=== PATIENT | male | born 1935 | race Caucasian/White ===

== ENCOUNTER 2016-05-29 07:49 | Inpatient (IN) | payer MEDICARE, MEDICAID ==
[2016-05-29] VITALS (11 sets, daily range): BP systolic 135–218; BP diastolic 61–100; PULSE 80–124; RESP 18–20; TEMP 96.1–98; O2SAT 91–100
[~2016-05-29] VITALS: Ht 185.4 cm; Wt 54.5 kg
[~2016-05-29 07:49] MED LIST: ACET325T PO; ALBU6.7H INH; AMLO5TAB2 PO; ASPI1TAB69 PO; CARB25TA9 PO; DIVA250T3 PO; DOCU100C PO; NYST15T TOPICAL; TRIA0.5O TOPICAL; VENL75TA PO
[2016-05-29] MEDS ORDERED: SODIUM CHLORIDE 0.9% FLUSH 5 ML FLUSH IVF PRN (08:00)
[2016-05-29] MEDS ORDERED: SODIUM CHLOR 0.9% 1000 ML INJ 1,000 ML IV ONE (08:00)
--- NOTE | 2016-05-29 08:06 | PD ---
HPI Chief Complaint: Syncope/Near-Syncope Time Seen by Provider: 08:00 Travel History International Travel<30 days: No Contact w/Intl Traveler<30days: No Traveled to known affect area: No History of Present Illness HPI The patient is a 80-year-old male who presents emergency Department from assisted living facility because he feels like he is going to pass out. The patient does have a history of dementia and Parkinson's disease. The patient feels like he is going to "pass out ", does complain of mild dizziness, and states his symptoms are present at rest. The patient is currently nonambulatory secondary to severe Parkinson's disease, therefore, is unable to tell me if his symptoms or orthostatic. He denies any headache, chest pain, shortness breath, nausea, vomiting, or abdominal pain. The patient does have a history of asthma and COPD and uses oxygen intermittently. The patient denies any fever. Symptoms are moderate, there are no known alleviating or exacerbating factors. PFSH Past Medical History Anemia: Yes Asthma: Yes COPD: Yes Dementia: Yes Diminished Hearing: Yes Hypertension: Yes Musculoskeletal: Yes (wheelchair ) Neurologic: Yes Parkinson's Disease: Yes Respiratory: Yes Tetanus Vaccination: > 5 Years Influenza Vaccination: Yes Social History Alcohol Use: No Tobacco Use: No Substance Use: No Allergies-Medications (Allergen,Severity, Reaction): Coded Allergies: Penicillin (Verified Allergy, Severe, Rash, 05/29/16) Reported Meds & Prescriptions Reported Meds & Active Scripts Active Reported Temazepam 7.5 Mg Cap 7.5 Mg PO HS PRN Effexor (Venlafaxine HCl) 75 Mg Tab 75 Mg PO DAILY Triamcinolone Topical 0.5 % Oint 1 Applic TOPICAL BID Docusate Sodium 100 Mg Cap 100 Mg PO BID Divalproex ER (Divalproex Sodium) 250 Mg Tenzin 250 Mg PO BID Carbidopa-Levodopa 25-100 Mg Tab 1 Tab PO Q8HR Aspirin 81 Mg Tabdr 81 Mg PO DAILY Amlodipine (Amlodipine Besylate) 5 Mg Tab 5 Mg PO DAILY Proventil Hfa 6.7 GM Inh (Albuterol Sulfate) 90 Mcg/Act Aer 2 Puff INH Q4-6H PRN Nystatin Topical (Nystatin) 100,000 unit/gm Cream 1 Applic TOPICAL BID Acetaminophen 325 Mg Tab 325 Mg PO Q4-6H PRN Review of Systems Except as stated in HPI: all other systems reviewed are Neg General / Constitutional: No: Fever Eyes: Positive: Other (chronic rest of her left thigh but is able to see out of it) HENT: Positive: Lightheadedness, No: Headaches Cardiovascular: No: Chest Pain or Discomfort Respiratory: No: Shortness of Breath Gastrointestinal: No: Nausea, Vomiting, Abdominal Pain Musculoskeletal: No: Weakness Neurologic: Positive: Dizziness, Tremor, Other (history of Parkinson's disease) Physical Exam Narrative GENERAL: Awake, alert, 80-year-old male who appears his stated age and is in no acute respiratory distress. SKIN: Warm and dry. HEAD: Atraumatic. Normocephalic. EYES: The left pupil appears to have a pterygium, pupils are equal and reactive. ENT: No nasal bleeding or discharge. Dry mucous membranes. NECK: Trachea midline. No JVD. CARDIOVASCULAR: Regular, tachycardic with a heart rate of 101. RESPIRATORY: No accessory muscle use. Clear to auscultation. Breath sounds equal bilaterally. GASTROINTESTINAL: Abdomen soft, non-tender, nondistended. MUSCULOSKELETAL: No obvious deformities. No clubbing. No cyanosis. No edema. NEUROLOGICAL: Awake and alert. Resting tremor both arms and right leg. Answers questions without difficulty. Follows commands. PSYCHIATRIC: Appropriate mood and affect; insight and judgment normal. Data Data Last Documented VS Vital Signs Date Time Temp Pulse Resp B/P Pulse Ox O2 Delivery O2 Flow Rate FiO2 05/29/16 08:15 91 Nasal Cannula 2 05/29/16 07:53 97.7 93 173/89 Orders Electrocardiogram (05/29/16 ) Complete Blood Count With Diff (05/29/16 08:00) Comprehensive Metabolic Panel (05/29/16 08:00) Magnesium (Mg) (05/29/16 08:00) Ckmb (Isoenzyme) Profile (05/29/16 08:00) Troponin I (05/29/16 08:00) Urinalysis - C+S If Indicated (05/29/16 08:00) Chest, Single Ap (05/29/16 08:00) Ecg Monitoring (05/29/16 08:00) Iv Access Insert/Monitor (05/29/16 08:00) Oximetry (05/29/16 08:00) Sodium Chloride 0.9% Flush (Ns Flush) (05/29/16 08:00) Sodium Chlor 0.9% 1000 Ml Inj (Ns 1000 M (05/29/16 08:00) Valproic Acid (Depakene) (05/29/16 08:00) Type And Screen (05/29/16 09:23) Red Blood Cells (Rbc) (05/29/16 09:23) Blood Product Administration .UPON TRANSFUSION (05/29/16 09:23) Sodium Chlor 0.9% 250 Ml Inj (Ns 250 Ml (05/29/16 09:30) Diphenhydramine Inj (Benadryl Inj) (05/29/16 09:30) Acetaminophen (Tylenol) (05/29/16 09:30) Potassium Chloride Eff (K-Lyte Cl Eff) (05/29/16 09:30) Labs Laboratory Tests Test 05/29/16 05/29/16 08:33 08:55 White Blood Count 2.2 TH/MM3 Red Blood Count 2.25 MIL/MM3 Hemoglobin 6.1 GM/DL Hematocrit 19.8 % Mean Corpuscular Volume 88.0 FL Mean Corpuscular Hemoglobin 27.1 PG Mean Corpuscular Hemoglobin 30.8 % Concent Red Cell Distribution Width 15.8 % Platelet Count 87 TH/MM3 Mean Platelet Volume 10.8 FL Neutrophils (%) (Auto) 63.3 % Lymphocytes (%) (Auto) 17.0 % Monocytes (%) (Auto) 15.3 % Eosinophils (%) (Auto) 3.8 % Basophils (%) (Auto) 0.6 % Neutrophils # (Auto) 1.4 TH/MM3 Lymphocytes # (Auto) 0.4 TH/MM3 Monocytes # (Auto) 0.3 TH/MM3 Eosinophils # (Auto) 0.1 TH/MM3 Basophils # (Auto) 0.0 TH/MM3 CBC Comment AUTO DIFF Differential Comment AUTO DIFF CONFIRMED Platelet Estimate LOW Platelet Morphology Comment NORMAL Ovalocytes 1+ Sodium Level 146 MEQ/L Potassium Level 2.8 MEQ/L Chloride Level 109 MEQ/L Carbon Dioxide Level 31.2 MEQ/L Anion Gap 6 MEQ/L Blood Urea Nitrogen 12 MG/DL Creatinine 0.41 MG/DL Estimat Glomerular Filtration 202 ML/MIN Rate Random Glucose 73 MG/DL Calcium Level 6.8 MG/DL Protein Corrected Calcium 7.8 MG/DL Magnesium Level 1.7 MG/DL Total Bilirubin 0.2 MG/DL Aspartate Amino Transf 6 U/L (AST/SGOT) Alanine Aminotransferase 8 U/L (ALT/SGPT) Alkaline Phosphatase 69 U/L Total Creatine Kinase 37 U/L Troponin I LESS THAN 0.02 NG/ML Total Protein 5.2 GM/DL Albumin 2.3 GM/DL Valproic Acid (Depakene) Level 29 MCG/ML Urine Color YELLOW Urine Turbidity CLEAR Urine pH 7.0 Urine Specific [place] 1.011 Urine Protein NEG mg/dL Urine Glucose (UA) NEG mg/dL Urine Ketones NEG mg/dL Urine Occult Blood NEG Urine Nitrite NEG Urine Bilirubin NEG Urine Urobilinogen LESS THAN 2.0 MG/DL Urine Leukocyte Esterase NEG Urine RBC 2 /hpf Urine WBC LESS THAN 1 /hpf Urine Mucus FEW /lpf Microscopic Urinalysis Comment CULT NOT INDICATED MDM Medical Decision Making Medical Screen Exam Complete: Yes Emergency Medical Condition: Yes Medical Record Reviewed: Yes Interpretation(s) EKG reveals maybe baseline secondary to Parkinson's tremor. He appears to have P waves. No significant ischemic changes noted. Laboratory Tests Test 05/29/16 05/29/16 08:33 08:55 White Blood Count 2.2 TH/MM3 Red Blood Count 2.25 MIL/MM3 Hemoglobin 6.1 GM/DL Hematocrit 19.8 % Mean Corpuscular Volume 88.0 FL Mean Corpuscular Hemoglobin 27.1 PG Mean Corpuscular Hemoglobin 30.8 % Concent Red Cell Distribution Width 15.8 % Platelet Count 87 TH/MM3 Mean Platelet Volume 10.8 FL Neutrophils (%) (Auto) 63.3 % Lymphocytes (%) (Auto) 17.0 % Monocytes (%) (Auto) 15.3 % Eosinophils (%) (Auto) 3.8 % Basophils (%) (Auto) 0.6 % Neutrophils # (Auto) 1.4 TH/MM3 Lymphocytes # (Auto) 0.4 TH/MM3 Monocytes # (Auto) 0.3 TH/MM3 Eosinophils # (Auto) 0.1 TH/MM3 Basophils # (Auto) 0.0 TH/MM3 CBC Comment AUTO DIFF Differential Comment AUTO DIFF CONFIRMED Platelet Estimate LOW Platelet Morphology Comment NORMAL Ovalocytes 1+ Sodium Level 146 MEQ/L Potassium Level 2.8 MEQ/L Chloride Level 109 MEQ/L Carbon Dioxide Level 31.2 MEQ/L Anion Gap 6 MEQ/L Blood Urea Nitrogen 12 MG/DL Creatinine 0.41 MG/DL Estimat Glomerular Filtration 202 ML/MIN Rate Random Glucose 73 MG/DL Calcium Level 6.8 MG/DL Protein Corrected Calcium 7.8 MG/DL Magnesium Level 1.7 MG/DL Total Bilirubin 0.2 MG/DL Aspartate Amino Transf 6 U/L (AST/SGOT) Alanine Aminotransferase 8 U/L (ALT/SGPT) Alkaline Phosphatase 69 U/L Total Creatine Kinase 37 U/L Troponin I LESS THAN 0.02 NG/ML Total Protein 5.2 GM/DL Albumin 2.3 GM/DL Valproic Acid (Depakene) Level 29 MCG/ML Urine Color YELLOW Urine Turbidity CLEAR Urine pH 7.0 Urine Specific [place] 1.011 Urine Protein NEG mg/dL Urine Glucose (UA) NEG mg/dL Urine Ketones NEG mg/dL Urine Occult Blood NEG Urine Nitrite NEG Urine Bilirubin NEG Urine Urobilinogen LESS THAN 2.0 MG/DL Urine Leukocyte Esterase NEG Urine RBC 2 /hpf Urine WBC LESS THAN 1 /hpf Urine Mucus FEW /lpf Microscopic Urinalysis Comment CULT NOT INDICATED Last Impressions Chest X-Ray 05/29/16 0800 Signed Impressions: Service Date/Time: Tuesday, May 29, 2016 08:03 - CONCLUSION: 1. 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 No new findings compared with January 2016. Noah Wheeler MD Differential Diagnosis Differential diagnosis includes dehydration, electrolyte abnormality, arrhythmia , sepsis, acute coronary syndrome, CVA, intracranial hemorrhage, subarachnoid hemorrhage. Narrative Course IV was established, labs are drawn and sent, and the patient was placed on cardiac telemetry monitoring and continuous pulse oximetry monitoring. EKG was ordered and interpreted. CT the brain was ordered. The patient was administered 1 L of IV fluids and electrolytes were sent to lab. Patient's hemoglobin was noted to be 6.1 with a low hematocrit of 19.8. Rectal exam was performed, no gross blood and was guaiac negative. Patient's last hemoglobin in February 2016 was normal at 13.3. The patient's tachycardia and symptoms of dizziness may be secondary to anemia. Therefore, type and screen was sent to lab and the patient was transfused 2 units of PRBCs. Potassium is low at 2.8, therefore, was replaced orally. I discussed the patient with the on-call medical service who agrees with admission. The patient will be admitted. [facility] Point of Care Internal Pos. & Neg. Controls: Passed Fecal Specimen Occult Blood: Negative Physician Communication Physician Communication I discussed the patient with Dr. Barros who agrees with admission. Diagnosis Primary Impression: Symptomatic anemia Additional Impressions: Hypokalemia Parkinson's disease Admitting Information Admitting Physician Requests: Admit Condition: Stable Murali Cat MD May 29, 2016 08:06
[2016-05-29] MEDS ORDERED: TEMA7.5C PO (08:20)
--- NOTE | 2016-05-29 08:42 | RADRPT ---
EXAM DATE/TIME: 05/29/2016 08:03 [facility] COMPARISON: CHEST PA & LAT, January 19, 2016, 9:31. INDICATIONS : Short of Breath, Palpitations, Dizziness. MEDICAL HISTORY : Dementia. Parkinsons. Chronic obstructive pulmonary disease. Hypertension. SURGICAL HISTORY : None. ENCOUNTER: Initial ACUITY: 1 day PAIN SCORE: 0/10 LOCATION: Bilateral chest FINDINGS: Compare January 2016. Stable right-sided pleural based calcifications and fibrothorax. No new consol idation or effusion. Heart size normal. Mild scoliosis. CONCLUSION: 1. 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 No new findings compared with No [id number]. Noah Wheeler MD on May 29, 2016 at 8:39 Board Certified Radiologist. This report was verified electronically.
[2016-05-29 08:50] LABS: AUTOMATED NEUTROPHIL # 1.4 TH/MM3 (1.8-7.7); BASOPHIL % 0.6 % (0.0-2.0); EOSINOPHIL # 0.1 TH/MM3 (0-0.4); EOSINOPHIL % 3.8 % (0.0-4.0); LYMPHOCYTE # 0.4 TH/MM3 (1.0-4.8); MEAN CORPUSCULAR HEMOGLOBIN 27.1 PG (27.0-34.0); MEAN CORPUSCULAR HGB CONC 30.8 % (32.0-36.0); MONO % 15.3 % (0.0-8.0); NEUT % 63.3 % (16.0-70.0); PLATELET COUNT 87 TH/MM3 (150-450); RED BLOOD COUNT 2.25 MIL/MM3 (4.50-5.90); RED CELL DISTRIBUTION WIDTH 15.8 % (11.6-17.2); WHITE BLOOD COUNT 2.2 TH/MM3 (4.0-11.0)
[2016-05-29 08:55] LABS: HEMO FLAGS AUTO DIFF
[2016-05-29 08:59] LABS: HEMATOCRIT 19.8 % (39.0-51.0)
[2016-05-29 09:13] LABS: BLOOD, URINE NEG (NEG); COMMENT (UR) CULT NOT INDICATED; CULTURE IF INDICATED CULT NOT INDICATED; GLUCOSE,URINE NEG (NEG); KETONE, URINE NEG (NEG); MUCUS URINE FEW /lpf (OCC); NITRITE,URINE NEG (NEG); URINE COLOR YELLOW (YELLW/STRAW)
[2016-05-29 09:17] LABS: ALKALINE PHOSPHATASE 69 U/L (45-117); ALT (GPT) 8 U/L (12-78); ANION GAP 6 MEQ/L (5-15); AST (GOT) 6 U/L (15-37); BICARBONATE 31.2 MEQ/L (21.0-32.0); BLOOD UREA NITROGEN 12 MG/DL (7-18); CALCIUM-PROTEIN CORRECTED 7.8 MG/DL (8.5-10.1); CHLORIDE 109 MEQ/L (98-107); GLOMERULAR FILTRATION RATE 202 ML/MIN (>89); MAGNESIUM 1.7 MG/DL (1.5-2.5); SODIUM (NA) 146 MEQ/L (136-145); TOTAL BILIRUBIN ADULT 0.2 MG/DL (0.2-1.0)
[2016-05-29 09:18] LABS: CREATINE KINASE 37 U/L (39-308)
--- NOTE | 2016-05-29 09:19 | EKG ---
Date Performed: 05/29/2016 Time Performed: 08:00:10 PTAGE: 80 years EKG: Sinus rhythm with frequent premature atrial contractions versus chaotic atrial rhythm. BORDERLINE RIGHT AXIS JOSÉ MIGUEL ATION INCOMPLETE RIGHT BUNDLE BRANCH BLOCK MODERATE ST DEPRESSION ABNORMAL ECG Compared to prior elec trocardiogram, premature atrial contractions are more frequent. PREVIOUS TRACING : 02/24/2016 11.24 DOCTOR: Vel Villareal Interpretating Date/Time 05/29/2016 09:17:46
[2016-05-29 09:20] LABS: POTASSIUM 2.8 MEQ/L (3.5-5.1)
[2016-05-29 09:24] LABS: OVALOCYTES 1+ (NORMAL); PLATELET ESTIMATE SMEAR LOW (NORMAL); PLATELET MORPHOLOGY NORMAL (NORMAL); SCAN/DIFF AUTO DIFF CONFIRMED
[2016-05-29] MEDS ORDERED: diphenhydrAMINE HCL 50 MG/ML VIAL IV PRN (09:30)
[2016-05-29] MEDS ORDERED: ACETAMINOPHEN 325 MG TAB PO PRN ×2 (09:30→10:00)
[2016-05-29] MEDS ORDERED: SODIUM CHLOR 0.9% 250 ML INJ 250 ML IV ONE (09:30)
[2016-05-29] MEDS ORDERED: POTASSIUM CHLORIDE 25 MEQ EFFERVESCENT TAB PO ONE (09:30)
[2016-05-29] MEDS ORDERED: SODIUM CHLOR 0.9% 1000 ML INJ 1,000 ML IV SCH (09:59)
[2016-05-29] MEDS ORDERED: SODIUM CHLORIDE 0.9% FLUSH 5 ML FLUSH FLUSH PRN (10:00)
[2016-05-29] MEDS ORDERED: ALBUTEROL SULFATE 90 MCG/ACT HFA 8 GM INHALER INH PRN (10:00)
[2016-05-29] MEDS ORDERED: BISACODYL 10 MG SUPP PR PRN (10:00)
[2016-05-29] MEDS ORDERED: SENNOSIDES 8.6 MG TAB PO PRN (10:00)
[2016-05-29] MEDS ORDERED: PROCHLORPERAZINE 25 MG SUPP PR PRN (10:00)
[2016-05-29] MEDS ORDERED: POTASSIUM BICARBONATE 25 MEQ EFFERVESCENT TAB PO ONE (10:15)
--- NOTE | 2016-05-29 10:18 | HHI.HP ---
[facility] Non-Staff Admission Diagnosis symptomatic anemia, Parkinson's disease, hypokalemia Diagnoses: Chief Complaint: sob Travel History International Travel<30 Days: No Contact w/Intl Traveler <30 Da: No Traveled to Known Affected Are: No History of Present Illness The patient is a 80-year-old male with PMH of Parkinson disease, HTN, dementia who presented to the emergency Department from assisted living facility because he feels like he is going to pass out and he felt sob. The patient feels like he is going to "pass out ", and he has associated sob. Does complain of mild dizziness, and states his symptoms are present at rest. The patient is currently nonambulatory secondary to severe Parkinson's disease, therefore, is unable to tell me if his symptoms or orthostatic. He denies any headache, chest pain, nausea, vomiting, or abdominal pain. The patient does have a history of asthma and COPD and uses oxygen intermittently. The patient denies any fever. Symptoms are moderate, there are no known alleviating or exacerbating factors. He has tremors, says at baseline, doesn't know the name of his neurology doctor. His BP is noted elevated says he did not take his meds in the morning. Review of Systems Except as stated in HPI: all other systems reviewed are Neg 12 system ROS reviewed and negative except as mentioned in HPI Past Family Social History Past Medical History Asthma since age 19 COPD? Depression HTN Parkinson's disease diagnosed last month Past Surgical History None Reported Medications Reported Meds & Active Scripts Active Reported Temazepam 7.5 Mg Cap 7.5 Mg PO HS PRN Effexor (Venlafaxine HCl) 75 Mg Tab 75 Mg PO DAILY Triamcinolone Topical 0.5 % Oint 1 Applic TOPICAL BID Docusate Sodium 100 Mg Cap 100 Mg PO BID Divalproex ER (Divalproex Sodium) 250 Mg Tenzin 250 Mg PO BID Carbidopa-Levodopa 25-100 Mg Tab 1 Tab PO Q8HR Aspirin 81 Mg Tabdr 81 Mg PO DAILY Amlodipine (Amlodipine Besylate) 5 Mg Tab 5 Mg PO DAILY Proventil Hfa 6.7 GM Inh (Albuterol Sulfate) 90 Mcg/Act Aer 2 Puff INH Q4-6H PRN Nystatin Topical (Nystatin) 100,000 unit/gm Cream 1 Applic TOPICAL BID Acetaminophen 325 Mg Tab 325 Mg PO Q4-6H PRN Allergies: Coded Allergies: Penicillin (Verified Allergy, Severe, Rash, 05/29/16) Family History Mother: stroke, age 60's Dad: healthy Social History Denies EtOH use, used to drink when he was also a smoker, former smoker quit in 1966, no illicit drug use Physical Exam Vital Signs Vital Signs Date Time Temp Pulse Resp B/P Pulse Ox O2 Delivery O2 Flow Rate FiO2 05/29/16 08:15 91 Nasal Cannula 2 05/29/16 07:53 97.7 93 173/89 Physical Exam GENERAL: This is a well-nourished, well-developed patient, in no apparent distress. SKIN: No rashes, ecchymoses or lesions. Cool and dry. HEAD: Atraumatic. Normocephalic. No temporal or scalp tenderness. EYES: Pupils equal round and reactive. Extraocular motions intact. No scleral icterus. No injection or drainage. ENT: Nose without bleeding, purulent drainage or septal hematoma. Throat without erythema, tonsillar hypertrophy or exudate. Uvula midline. Airway patent. NECK: Trachea midline. No JVD or lymphadenopathy. Supple, nontender, no meningeal signs. CARDIOVASCULAR: Regular rate and rhythm without murmurs, gallops, or rubs. RESPIRATORY: Clear to auscultation. Breath sounds equal bilaterally. No wheezes , rales, or rhonchi. GASTROINTESTINAL: Abdomen soft, non-tender, nondistended. No hepato-splenomegaly , or palpable masses. No guarding. MUSCULOSKELETAL: Extremities without clubbing, cyanosis, or edema. No joint tenderness, effusion, or edema noted. No calf tenderness. Negative Homans sign bilaterally. NEUROLOGICAL: Awake and alert. Cranial nerves II through XII intact. Motor and sensory grossly within normal limits. Five out of 5 muscle strength in all muscle groups. Normal speech. Laboratory Laboratory Tests Test 05/29/16 05/29/16 08:33 08:55 White Blood Count 2.2 Red Blood Count 2.25 Hemoglobin 6.1 Hematocrit 19.8 Mean Corpuscular Volume 88.0 Mean Corpuscular Hemoglobin 27.1 Mean Corpuscular Hemoglobin 30.8 Concent Red Cell Distribution Width 15.8 Platelet Count 87 Mean Platelet Volume 10.8 Neutrophils (%) (Auto) 63.3 Lymphocytes (%) (Auto) 17.0 Monocytes (%) (Auto) 15.3 Eosinophils (%) (Auto) 3.8 Basophils (%) (Auto) 0.6 Neutrophils # (Auto) 1.4 Lymphocytes # (Auto) 0.4 Monocytes # (Auto) 0.3 Eosinophils # (Auto) 0.1 Basophils # (Auto) 0.0 CBC Comment AUTO DIFF Differential Comment AUTO DIFF CONFIRMED Platelet Estimate LOW Platelet Morphology Comment NORMAL Ovalocytes 1+ Sodium Level 146 Potassium Level 2.8 Chloride Level 109 Carbon Dioxide Level 31.2 Anion Gap 6 Blood Urea Nitrogen 12 Creatinine 0.41 Estimat Glomerular Filtration 202 Rate Random Glucose 73 Calcium Level 6.8 Protein Corrected Calcium 7.8 Magnesium Level 1.7 Total Bilirubin 0.2 Aspartate Amino Transf 6 (AST/SGOT) Alanine Aminotransferase 8 (ALT/SGPT) Alkaline Phosphatase 69 Total Creatine Kinase 37 Troponin I LESS THAN 0.02 Total Protein 5.2 Albumin 2.3 Valproic Acid (Depakene) Level 29 Urine Color YELLOW Urine Turbidity CLEAR Urine pH 7.0 Urine Specific [place] 1.011 Urine Protein NEG Urine Glucose (UA) NEG Urine Ketones NEG Urine Occult Blood NEG Urine Nitrite NEG Urine Bilirubin NEG Urine Urobilinogen LESS THAN 2.0 Urine Leukocyte Esterase NEG Urine RBC 2 Urine WBC LESS THAN 1 Urine Mucus FEW Microscopic Urinalysis Comment CULT NOT INDICATED Result Diagram: 05/29/16 0833 05/29/16 0833 Imaging Last Impressions Chest X-Ray 05/29/16 0800 Signed Impressions: Service Date/Time: Sunday, May 29, 2016 08:03 - CONCLUSION: 1. 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 No new findings compared with January 2016. Noah Wheeler MD Assessment and Plan Assessment and Plan Pancytopenia Anemia unclear etiology symptomatic, with HGB 6.1 on admission FOBT in the ER is negative Type and screen transfuse 2U PRBC. Monitor H/H Monitor CBC Consult hem/onc Check Parkinson's disease Chronic, continue home meds, carbidopa/levadopa HTN: Resume amlodipine, BP elevated on admission. Monitor VS and adjust meds as indicated Right sided fibrothorax, stable. CXR reviewed 1. 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 No new findings compared with January 2016. DVT ppx CI as patient with pancytopenia Discussed Condition With patient, nurse, ED specialist Physician Certification 2 Midnight Certification Type: Admission for Inpatient Services Order for Inpatient Services The services are ordered in accordance with Medicare regulations or non- Medicare payer requirements, as applicable. In the case of services not specified as inpatient-only, they are appropriately provided as inpatient services in accordance with the 2-midnight benchmark. Estimated LOS (days): 3 days is the estimated time the patient will need to remain in the hospital, assuming treatment plan goals are met and no additional complications. Post-Hospital Plan: Not yet determined Evonne Morin MD May 29, 2016 10:18
[2016-05-29] MEDS: SODIUM CHLOR 0.45% 1000 ML INJ 1,000 ML IV SCH (11:21)
[2016-05-29 11:31] LABS: FERRITIN 16 NG/ML (26-388); TRANSFERRIN IRON PROFILE 194 MG/DL (200-360)
[2016-05-29] MEDS ORDERED: CALCIUM GLUCONATE INJ 1 GM in SODIUM CHLORIDE 0.9% INJ 100 ML IV ONE (12:00)
[2016-05-29] MEDS: CARBIDOPA/LEVODOPA 25 MG/100 MG TAB PO SCH ×2 (12:37→22:34)
[2016-05-29] MEDS ORDERED: ENALAPRILAT 2.5 MG/2 ML VIAL IV PUSH PRN (13:45)
[2016-05-29] MEDS ORDERED: amLODIPine BESYLATE 5 MG TAB PO ONE (13:45)
[2016-05-29] MEDS ORDERED: cloNIDine HCL 0.1 MG TAB PO PRN (13:45)
--- NOTE | 2016-05-29 20:17 | MB ---
cc: JAVIER LANDIN M.D. DATE OF CONSULTATION 05/29/16 REASON FOR CONSULTATION Consult requested by Dr. Morin for evaluation of severe anemia. HISTORY OF PRESENT ILLNESS This is a 80-year-old male who resides at the adult living facility. The patient was complaining that he is going to pass out. He was also short of breath. He was sent to the emergency room for further evaluation. In the emergency room this morning the CBC showed white count 2.2, hemoglobin 6.1, hematocrit 19.8, platelet count is 87. This is compared to the previous CBC from February 24, 2016 when it was completely normal. This is an acute change. His stools were checked in the emergency room which were heme-negative. The patient is getting blood transfusion. His iron studies came back showed that the serum ferritin is 16, iron saturation is low at 15.8, serum iron is low at 43 and TIBC is normal at 272. This is consistent with iron deficiency anemia. The B12 is normal at 515. The serum folate is normal at 9.0. I have been asked to see the patient for further evaluation. The patient denies any previous history of anemia. He is a very poor historian. He has severe tremors from Parkinson's disease. The patient's performance status is poor due to the severe Parkinson's disease. He is not able to walk that much. He denies any fever. He denies any nausea, vomiting, diarrhea or constipation. The rest of the review of systems is negative. PAST MEDICAL HISTORY Dementia, COPD, depression, hypertension, Parkinson's disease. PAST SURGICAL HISTORY None. ALLERGIES PENICILLIN. MEDICATIONS 1. Temazepam. 2. Effexor. 3. Colace. 4. Divalproex. 5. Carbidopa/Levadopa. 6. Aspirin. 7. Amlodipine. 8. Proventil. 9. Nystatin. FAMILY HISTORY Noncontributory. SOCIAL HISTORY The patient used to smoke cigarettes, quit in 1995. He does not drink alcohol anymore. He resides in the adult living facility. PHYSICAL EXAMINATION GENERAL: This is an elderly white male in no apparent distress. He has obvious tremors. VITAL SIGNS: Temperature 97.7, heart rate is 95, blood pressure 165/80. HEENT: PERRLA, EOMI, pterygium noted in the in the left eye. No oral lesions. NECK: No lymphadenopathy. LUNGS: Decreased breath sounds on both sides. HEART: Heart is regular rate and rhythm. ABDOMEN: Abdomen is soft, nontender. No hepatosplenomegaly. EXTREMITIES: No pedal edema. NEUROLOGIC: The patient is awake, alert with severe tremors. SKIN: No significant lesions noted. ASSESSMENT 1. Acute severe pancytopenia. The differential diagnosis is myelodysplastic syndrome versus acute leukemia versus bone marrow suppression from the medications such as Divalproex and/or Carbidopa/Levadopa. 2. Severe iron deficiency anemia. His stools were checked in the emergency room by ER physician and was reported to be negative. However, we will get the stool for occult blood to make sure that he does not have any GI bleeding as a cause of the iron deficiency. He will need GI consult to make sure that we are not dealing with any GI malignancy as a cause of the iron deficiency. PLAN I have reviewed his available records and have discussed with the patient regrading causes of pancytopenia and iron deficiency anemia. Interestingly, the patient had a CBC on February 24, 2016 when he came to the emergency room was completely normal. Now his CBC shows that the white count has dropped to 2.2, hemoglobin 6.1, hematocrit is 19.8, platelet count is 87. Either he could have myelodysplastic syndrome or acute leukemia. Or this could be due to the medications Divalproex and /or Carbidopa/Levadopa. No evidence of nutritional deficiency as both B12 and folate are normal. My recommendations are: 1) consult interventional radiology for bone marrow aspirate and biopsy on Tuesday to evaluate for either myelodysplastic syndrome or acute leukemia. 2) Adjust medications Divalproex and/or Carbidopa/Levadopa. Both can cause pancytopenia and blood dyscrasia. I will leave it upto the [facility] physcian to do the adjustment as it is out of scope of my practice. 3) Monitor cbc and support with blood transfusion if HG <8 4) Venofer iron infusion for iron deficiency anemia. Check stool for occult blood. Consult GI to evaluate the cause of Iron deficiency. The patient is receiving blood transfusion at the moment. Further recommendations based on his hospital stay. Thank you for asking my opinion. MD RALPH Reinoso/MARIETTA /7:25 PM /7:52 PM MTDCarolin
[2016-05-29] MEDS: SODIUM CHLORIDE 0.9% FLUSH 5 ML FLUSH FLUSH SCH (22:34)
[2016-05-29] MEDS: DIVALPROEX SODIUM E.R. 250 MG TAB PO SCH (22:34)
[2016-05-29] MEDS: DOCUSATE SODIUM 100 MG CAP PO SCH (22:34)
[2016-05-29] MEDS: CALCIUM CARBONATE 500 MG CHEWABLE TAB CHEW SCH (22:34)
[2016-05-29] MEDS: NYSTATIN 100,000 UNIT/GM CREAM 15 GM TOPICAL SCH (22:35)
[2016-05-29] MEDS: BETAMETHASONE DIPROPIONATE 0.05% OINT 15 GM TUBE TOP SCH (22:35)
[2016-05-29] MEDS: TEMAZEPAM 7.5 MG CAP PO PRN (22:38)
[2016-05-30 00:26] VITALS: PULSE 94; RESP 20; TEMP 97.4; O2SAT 98
[2016-05-30 04:00] VITALS: BP 168/74; PULSE 92; RESP 20; TEMP 97.8; O2SAT 98
[2016-05-30] MEDS: CARBIDOPA/LEVODOPA 25 MG/100 MG TAB PO SCH ×2 (05:47→12:28)
[2016-05-30] MEDS: SODIUM CHLOR 0.45% 1000 ML INJ 1,000 ML IV SCH ×3 (05:48→21:10)
[2016-05-30 07:40] VITALS: BP 175/93; PULSE 91; RESP 20; TEMP 96.6; O2SAT 100
[2016-05-30] MEDS: NYSTATIN 100,000 UNIT/GM CREAM 15 GM TOPICAL SCH ×2 (08:24→21:10)
[2016-05-30] MEDS: BETAMETHASONE DIPROPIONATE 0.05% OINT 15 GM TUBE TOP SCH ×2 (08:24→21:10)
[2016-05-30] MEDS: DOCUSATE SODIUM 100 MG CAP PO SCH ×2 (08:26→21:09)
[2016-05-30] MEDS: DIVALPROEX SODIUM E.R. 250 MG TAB PO SCH (08:27)
[2016-05-30] MEDS: amLODIPine BESYLATE 5 MG TAB PO SCH (08:27)
[2016-05-30] MEDS: CALCIUM CARBONATE 500 MG CHEWABLE TAB CHEW SCH ×2 (08:27→21:09)
[2016-05-30] MEDS: VENLAFAXINE HCL XR 75 MG CAP PO SCH (08:27)
[2016-05-30] MEDS: SODIUM CHLORIDE 0.9% FLUSH 5 ML FLUSH FLUSH SCH ×2 (08:27→21:09)
[2016-05-30 09:27] LABS: AUTOMATED NEUTROPHIL # 3.1 TH/MM3 (1.8-7.7); BASOPHIL % 0.6 % (0.0-2.0); EOSINOPHIL # 0.1 TH/MM3 (0-0.4); EOSINOPHIL % 1.7 % (0.0-4.0); HEMATOCRIT 42.8 % (39.0-51.0); HEMO FLAGS DIFF FINAL; LYMPH % 12.3 % (9.0-44.0); LYMPHOCYTE # 0.6 TH/MM3 (1.0-4.8); MEAN CELL VOLUME 84.6 FL (80.0-100.0); MEAN CORPUSCULAR HEMOGLOBIN 27.2 PG (27.0-34.0); MEAN CORPUSCULAR HGB CONC 32.2 % (32.0-36.0); MONO % 16.3 % (0.0-8.0); NEUT % 69.1 % (16.0-70.0); PLATELET COUNT 145 TH/MM3 (150-450); RED BLOOD COUNT 5.06 MIL/MM3 (4.50-5.90); RED CELL DISTRIBUTION WIDTH 15.8 % (11.6-17.2); WHITE BLOOD COUNT 4.5 TH/MM3 (4.0-11.0)
--- NOTE | 2016-05-30 09:51 | PD.ONC.PN ---
Subjective Subjective Remarks Afebrile overnight. No reported overnight events. No report of bleeding. tolerated blood transfusion. Patient resting in room in nad. Objective Data Date Time Temp Pulse Resp B/P Pulse Ox O2 Delivery O2 Flow Rate FiO2 05/30/16 07:40 96.6 91 20 175/93 100 05/30/16 04:00 97.8 92 20 168/74 98 05/30/16 00:26 97.4 94 20 98 05/29/16 23:05 170/78 05/29/16 18:13 97.7 95 20 165/80 95 05/29/16 16:00 96.1 111 18 177/77 97 05/29/16 15:09 97.1 92 18 163/82 05/29/16 14:41 97.4 86 20 135/61 100 05/29/16 14:06 93 18 136/66 100 05/29/16 13:45 97.8 80 18 149/71 99 05/29/16 12:57 195/98 05/29/16 12:20 98.0 124 18 218/100 99 Result Diagram: 05/30/16 0854 05/29/16 0833 Laboratory Results Laboratory Tests Test 05/29/16 05/29/16 05/30/16 09:56 11:10 08:54 Blood Type A POSITIVE A POSITIVE Antibody Screen NEGATIVE Crossmatch Leukocyte-Reduced Red Blood Cells Blood Bank Comment White Blood Count 4.5 TH/MM3 Red Blood Count 5.06 MIL/MM3 Hemoglobin 13.8 GM/DL Hematocrit 42.8 % Mean Corpuscular Volume 84.6 FL Mean Corpuscular Hemoglobin 27.2 PG Mean Corpuscular Hemoglobin 32.2 % Concent Red Cell Distribution Width 15.8 % Platelet Count 145 TH/MM3 Mean Platelet Volume 10.8 FL Neutrophils (%) (Auto) 69.1 % Lymphocytes (%) (Auto) 12.3 % Monocytes (%) (Auto) 16.3 % Eosinophils (%) (Auto) 1.7 % Basophils (%) (Auto) 0.6 % Neutrophils # (Auto) 3.1 TH/MM3 Lymphocytes # (Auto) 0.6 TH/MM3 Monocytes # (Auto) 0.7 TH/MM3 Eosinophils # (Auto) 0.1 TH/MM3 Basophils # (Auto) 0.0 TH/MM3 CBC Comment DIFF FINAL Differential Comment Administered Medications Medications (Trade) Dose Ordered Sig/Yelitza Route PRN Reason Start Time Stop Time Status Last Admin Dose Admin IV Flush (NS Flush) 2 ml BID FLUSH 05/29/16 21:00 05/30/16 08:27 Albuterol Sulfate (Proair Hfa Inh) 2 puff Q6HR PRN INH SHORTNESS OF BREATH 05/29/16 10:00 05/29/16 10:59 Amlodipine Besylate (Norvasc) 5 mg DAILY PO 05/30/16 09:00 05/30/16 08:27 Carbidopa/Levodopa (Sinemet 25-100 Mg) 1 tab Q8HR PO 05/29/16 14:00 05/30/16 05:47 Divalproex Sodium (Depakote Er) 250 mg BID PO 05/29/16 21:00 05/30/16 08:27 Docusate Sodium (Colace) 100 mg BID PO 05/29/16 21:00 05/30/16 08:26 Nystatin (Mycostatin Cream) 1 applic BID TOPICAL 05/29/16 21:00 05/30/16 08:24 Temazepam (Restoril) 7.5 mg HS PRN PO INSOMNIA 05/29/16 10:00 05/29/16 22:38 Betamethasone Dipropionate (Diprosone 0.05% Ointment) 1 applic BID TOP 05/29/16 21:00 05/30/16 08:24 Venlafaxine HCl (Effexor Xr) 75 mg DAILY PO 05/30/16 09:00 05/30/16 08:27 Calcium Carbonate 500 mg 500 mg Q12HR CHEW 05/29/16 21:00 05/30/16 08:27 Sodium Chloride (1/2 NS 1000 ml Inj) 1,000 ml @ 84 mls/hr [id number] IV 05/29/16 10:15 05/30/16 08:27 Objective Remarks GENERAL: Elderly male, sitting up on side of bed with severe bilateral tremor. SKIN: Warm and dry. HEAD: Normocephalic. EYES: No injection or drainage. NECK: Supple, trachea midline. CARDIOVASCULAR: Regular rate and rhythm RESPIRATORY: Breath sounds equal bilaterally. No accessory muscle use. GASTROINTESTINAL: Abdomen soft, non-tender, nondistended. EXTREMITIES: No cyanosis MUSCULOSKELETAL: Adequate muscle tone. NEUROLOGICAL: awake and alert. severe tremor. Assessment/Plan Problem List: (1) Pancytopenia Status: Acute Plan: 05/30/16: counts improved today. will monitor and give IV venofer today. --differential diagnosis is myelodysplastic syndrome versus acute leukemia versus bone marrow suppression from the medications such as Divalproex and/or Carbidopa/Levadopa. --will need bone marrow aspirate and biopsy on Tuesday to evaluate for either myelodysplastic syndrome or acute leukemia. (2) Iron deficiency anemia Status: Acute Plan: 05/30: give IV Venofer 100mg IV x 3 days. await GI consult --stools check in ED were Hemoccult negative --awaiting GI consult to r/o malignancy Assessment 80y/o with pancytopenia and iron deficiency anemia. h/o Dementia, COPD, depression, hypertension, Parkinson's disease. Attending Statement no new c/o feels better cbc shows hg improved to 13. Repeat h/h also confirm hg 13. So i suspect that blood from yesterday was an error. I will repeat iron studies to confirm. GI input appreciated. NO need for bm bx as his blood counts are normal except plat is mildly low. d/w Dr diaz. will follow. The exam, history, and the medical decision-making described in the above note were completed with the assistance of the mid-level provider. I reviewed and agree with the findings presented. I attest that I had a [id number] encounter with the patient on the same day, and personally performed and documented my assessment and findings in the medical record. Problem Qualifiers (1) Iron deficiency anemia: Qualified Code: D50.9 - Iron deficiency anemia, unspecified iron deficiency anemia type Sarah Montgomery May 30, 2016 09:51 Ashwin Dorantes MD May 30, 2016 18:46
[2016-05-30] MEDS: IRON SUCROSE INJ 100 MG in SODIUM CHLORIDE 0.9% INJ 100 ML IV SCH (10:33)
[2016-05-30 10:35] LABS: BICARBONATE 34.7 MEQ/L (21.0-32.0); POTASSIUM 3.8 MEQ/L (3.5-5.1)
--- NOTE | 2016-05-30 10:37 | HHI.PR ---
Subjective Remarks In the chair, with tremors, says tremors are at baseline. Less sob. Feels tired. No n/v/d/c. No charanijt bleeding. No signs of bleeding. Denies having any pain. Objective Vitals Vital Signs Date Time Temp Pulse Resp B/P Pulse Ox O2 Delivery O2 Flow Rate FiO2 05/30/16 07:40 96.6 91 20 175/93 100 05/30/16 04:00 97.8 92 20 168/74 98 05/30/16 00:26 97.4 94 20 98 05/29/16 23:05 170/78 05/29/16 18:13 97.7 95 20 165/80 95 05/29/16 16:00 96.1 111 18 177/77 97 05/29/16 15:09 97.1 92 18 163/82 05/29/16 14:41 97.4 86 20 135/61 100 05/29/16 14:06 93 18 136/66 100 05/29/16 13:45 97.8 80 18 149/71 99 05/29/16 12:57 195/98 05/29/16 12:20 98.0 124 18 218/100 99 I/O 05/29/16 05/29/16 05/29/16 05/30/16 05/30/16 05/30/16 07:00 15:00 23:00 07:00 15:00 23:00 Intake Total 120 ml 240 ml 240 ml Output Total 350 ml 400 ml Balance 120 ml -110 ml -160 ml Intake Oral 120 ml 240 ml 240 ml Output Urine Total 350 ml 400 ml # Voids 2 2 # Bowel Movements 2 Result Diagram: 05/30/16 0854 05/29/16 0833 Imaging Last Impressions Chest X-Ray 05/29/16 0800 Signed Impressions: Service Date/Time: Sunday, May 29, 2016 08:03 - CONCLUSION: 1. 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 No new findings compared with January 2016. Noah Wheeler MD Objective Remarks GENERAL: This is a well-nourished, well-developed patient, in no apparent distress. SKIN: No rashes, ecchymoses or lesions. Cool and dry. HEAD: Atraumatic. Normocephalic. No temporal or scalp tenderness. EYES: Pupils equal round and reactive. Extraocular motions intact. No scleral icterus. No injection or drainage. ENT: Nose without bleeding, purulent drainage or septal hematoma. Throat without erythema, tonsillar hypertrophy or exudate. Uvula midline. Airway patent. NECK: Trachea midline. No JVD or lymphadenopathy. Supple, nontender, no meningeal signs. CARDIOVASCULAR: Regular rate and rhythm without murmurs, gallops, or rubs. RESPIRATORY: Clear to auscultation. Breath sounds equal bilaterally. No wheezes , rales, or rhonchi. GASTROINTESTINAL: Abdomen soft, non-tender, nondistended. No hepato-splenomegaly , or palpable masses. No guarding. MUSCULOSKELETAL: Extremities without clubbing, cyanosis, or edema. No joint tenderness, effusion, or edema noted. No calf tenderness. Negative Homans sign bilaterally. NEUROLOGICAL: Awake and alert. Cranial nerves II through XII intact. Motor and sensory grossly within normal limits. Five out of 5 muscle strength in all muscle groups. Normal speech. A/P Assessment and Plan Pancytopenia Anemia unclear etiology symptomatic, with HGB 6.1 on admission Consult IR for BM BX to r/o MDS. FOBT in the ER is negative. Type and screen transfuse 2U PRBC. Repeat HGB ay 13. Monitor H/H and transfuse as need. Monitor CBC Consult hem/onc , recommends GI consult, changing star meds and also IR for BMBX to r/o MDS. Consult GI to r/o GIB Parkinson's disease Chronic, continue home meds, carbidopa/levadopa. Consult neurology for revision of meds and po ss change meds as might cause anemia HTN: Resume amlodipine, BP elevated on admission. Monitor VS and adjust meds as indicated Right sided fibrothorax, stable. CXR reviewed 1. 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 No new findings compared with January 2016. DVT ppx CI as patient with pancytopenia Discussed Condition With patient, nurse Discharge Planning pending improvement further work up and clearance by consultants. Evonne Morin MD May 30, 2016 10:37
[2016-05-30] MEDS ORDERED: MAGNESIUM OXIDE 400 MG TAB PO ONE (10:45)
[2016-05-30 11:30] VITALS: BP 156/67; PULSE 85; RESP 20; TEMP 97.3; O2SAT 96
--- NOTE | 2016-05-30 14:01 | MB ---
cc: MATEO GRAY MD DATE OF CONSULTATION: 05/30/2016 REASON FOR CONSULTATION: Parkinson's with anemia. Evaluation for change in medications. HISTORY OF PRESENT ILLNESS: The patient is a poor historian with a baseline dementia who resides in a [facility]. He has been diagnosed with Parkinson's disease lately according to the review of the medical records as the patient is a poor historian. He presented from the facility because he felt like he was going to pass out and felt short of breath. The patient states that he is non-ambulatory for the last four years. Denies headache, double vision, blurred vision, speech or swallowing difficulty; however, during the encounter, the patient seemed to have slurred speech and hypophonic with possible element of dysphagia as there was a lot of spilt food on his abraham and hospital gown. The patient found to be anemic during this hospital stay as compared to a recent hospital stay with a drop in hemoglobin down to 6.1, hematocrit 19.8, white blood cells of 2.2 and a platelet count of 87,000/pancytopenia; hence, they consulted neurology for modification of medication as he is currently on carbidopa-levodopa 25 mg /100 mg q. 8 hourly and for unclear reasons on Divalproex Extended-Release 250 milligrams twice daily. REVIEW OF SYSTEMS: A twelve-point review of systems was negative except as stated in the history of present illness. PAST MEDICAL HISTORY: 1. Dementia. 2. Anemia. 3. Asthma. 4. COPD. 5. Hypertension. 6. Parkinson's disease. PAST SURGICAL HISTORY: None. ALLERGIES: PENICILLIN. FAMILY HISTORY: Mother with a stroke. SOCIAL HISTORY: Ex-smoker and ex-alcohol consumer. No illicit drug abuse. PHYSICAL EXAMINATION: GENERAL: The patient is a frail, disheveled male with notable head, body and extremity shaking. Poor historian. HEAD, EYES, EARS, NOSE, THROAT: Normocephalic and atraumatic. Intact hearing. Intact vision. Notable head shake. NECK: No carotid bruits. No signs of meningeal irritation. CARDIOVASCULAR: Regular rate and rhythm. RESPIRATORY: Clear to auscultation. No wheezes. MUSCULOSKELETAL: Extremities without clubbing, cyanosis; however, there is abnormal movement of all four extremities. NEUROLOGICAL EXAMINATION: Awake, alert and oriented to time, person and place. Hypophonic. Slurred speech / questionable chronic. CRANIAL NERVES EXAMINATION: Positive primitive release reflexes, positive Myerson's sign. Pupils are 3 mm bilateral equal. Intact ocular motility. Slurred speech. Hypophonic speech / likely chronic. No obvious facial asymmetry. MOTOR EXAMINATION: Generalized weakness. Unable to accurately assess and grade the muscle strength due to the prominent abnormal movement in the extremities; however, he is able to move all his extremities with notable weakness in bilateral lower extremities with hypertonia of rigid type and cogwheel rigidity in bilateral upper extremities with notable coarse tremor in the four extremities, upper extremities greater than lower extremities. REFLEXES: 1+ bilateral symmetrical. Plantars are bilateral downgoing. SENSORY AND CEREBELLAR: Sensation and cerebellar functions were not accurately assessed due to the condition of the patient. LAB TESTS: WBCs 2.2, hemoglobin 6.1, hematocrit 19.8, platelet count 87,000. Sodium 146, potassium 2.8, chloride 109, anion gap 6, BUN 12, creatinine 0.41, calcium level 6.8, magnesium 1.7. AST 6, ALT 8, alkaline phosphatase 69. Assessment and Plan: - Extrapyramidal disorder / Parkinsonism. - Given the bilateral involvement of the extrapyramidal features and the fast progression of symptoms with cognitive decline and possible autonomic symptoms as the patient was admitted previously to a hospital with hypotension and with the sphincter control disturbances that has been ongoing for a long time and inability to walk and unsteadiness, the patient is unlikely a definite diagnosis of Parkinson's disease. 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 - Given the possible side effect of carbidopa-levodopa on the hemopoietic system , I do not see a contraindication not to discontinue carbidopa-levodopa at this time and substitute it with a dopamine agonist like Pramipexole or Ropinirole; however, the pharmacological affect could still be unsatisfactory. - Patient is on Divalproex Extended-Release for unclear the reasons. There is no mention of a history of seizures; however, could have been prescribed because of depression or as a mood stabilizer. We still can discontinue the medication gradually over two days. - Physical therapy / occupational therapy recommendations are appreciated. -Fall precautions. Thank you for the opportunity to participate in the care of your patient. MD LELE Charles/HILARIO /1:01 PM /1:40 PM SAMIA
--- NOTE | 2016-05-30 14:03 | PD.CONS ---
HPI History of Present Illness Mr. Salvador is a 80 y/o WM with Parkinson disease, HTN, and dementia who presented to the ED at [facility] on 05/29/16 from a local assisted living facility, [facility], because he felt like he is going to pass out and felt SOB. Labs at admission revealed a significant anemia with Hgb 6.1/Hct 19.8. Pt was given 2 units of PRBCs and repeat labs today with noted Hgb 13.8/Hct 42.8 which is unlikely to be correct as pt only received 2 units of blood. Pts nurse states that he has not seen any obvious bleeding. Pt was noted to be guaiac negative in the ED. He is notably iron deficient. Pt was seen by Hematology/oncology and there is concern for possible myelodysplastic syndrome vs. acute leukemia vs. bone marrow suppression from the medications such as Divalproex and/or Carbidopa /Levadopa and pt is planned for BM biopsy but GI consult was requested to rule out any malignancy as a cause for his anemia. Its unclear if the pt has been losing any weight. He is reportedly not eating much. Pt seems to have some baseline dementia and lives at a local [facility]. He is alert and oriented to self, he knows he is in a hospital in [place] and is able to tell me its 2017 but he states that his lives in [place] with his 7 children who range in age from 18 years old to 3 months old. Pt states that he has not previously been evaluated with an EGD or colonoscopy. He denies any chest pain, nausea, vomiting, diarrhea or abdominal pain. The patient does have a history of asthma and COPD and uses oxygen intermittently. He has tremors at baseline. (Mary Felipe) PFSH Past Medical History According to his records from his [facility] paperwork, pts PMH includes: Asthma COPD PAD Depression HTN Parkinson's disease Past Surgical History None reported (Mary Felipe) Coded Allergies: Penicillin (Verified Allergy, Severe, Rash, 05/29/16) Medications Temazepam 7.5 Mg Cap 7.5 Mg PO HS PRN Effexor (Venlafaxine HCl) 75 Mg Tab 75 Mg PO DAILY Triamcinolone Topical 0.5 % Oint 1 Applic TOPICAL BID Docusate Sodium 100 Mg Cap 100 Mg PO BID Divalproex ER (Divalproex Sodium) 250 Mg Tenzin 250 Mg PO BID Carbidopa-Levodopa 25-100 Mg Tab 1 Tab PO Q8HR Aspirin 81 Mg Tabdr 81 Mg PO DAILY Amlodipine (Amlodipine Besylate) 5 Mg Tab 5 Mg PO DAILY Proventil Hfa 6.7 GM Inh (Albuterol Sulfate) 90 Mcg/Act Aer 2 Puff INH Q4-6H PRN Nystatin Topical (Nystatin) 100,000 unit/gm Cream 1 Applic TOPICAL BID Acetaminophen 325 Mg Tab 325 Mg PO Q4-6H PRN Family History Mother: stroke, age 60's Dad: healthy Social History Denies EtOH use Pt has hx of tobacco use, quit in 1966, no illicit drug use Pt lives at a local [facility] (Mary Felipe) GI Exam Vitals I&O Vital Signs Date Time Temp Pulse Resp B/P Pulse Ox O2 Delivery O2 Flow Rate FiO2 05/30/16 11:30 97.3 85 20 156/67 96 05/30/16 07:40 96.6 91 20 175/93 100 05/30/16 04:00 97.8 92 20 168/74 98 05/30/16 00:26 97.4 94 20 98 05/29/16 23:05 170/78 05/29/16 18:13 97.7 95 20 165/80 95 05/29/16 16:00 96.1 111 18 177/77 97 05/29/16 15:09 97.1 92 18 163/82 05/29/16 14:41 97.4 86 20 135/61 100 05/29/16 14:06 93 18 136/66 100 05/29/16 13:45 97.8 80 18 149/71 99 I/O 05/29/16 05/29/16 05/29/16 05/30/16 05/30/16 05/30/16 07:00 15:00 23:00 07:00 15:00 23:00 Intake Total 120 ml 240 ml 240 ml Output Total 350 ml 400 ml 250 ml Balance 120 ml -110 ml -160 ml -250 ml Intake Oral 120 ml 240 ml 240 ml Output Urine Total 350 ml 400 ml 250 ml # Voids 2 2 # Bowel Movements 2 Imaging Last Impressions Chest X-Ray 05/29/16 0800 Signed Impressions: Service Date/Time: Sunday, May 29, 2016 08:03 - CONCLUSION: 1. 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 No new findings compared with January 2016. Noah Wheeler MD Laboratory Test 05/30/16 08:54 White Blood Count 4.5 TH/MM3 Red Blood Count 5.06 MIL/MM3 Hemoglobin 13.8 GM/DL Hematocrit 42.8 % Mean Corpuscular Volume 84.6 FL Mean Corpuscular Hemoglobin 27.2 PG Mean Corpuscular Hemoglobin 32.2 % Concent Red Cell Distribution Width 15.8 % Platelet Count 145 TH/MM3 Mean Platelet Volume 10.8 FL Neutrophils (%) (Auto) 69.1 % Lymphocytes (%) (Auto) 12.3 % Monocytes (%) (Auto) 16.3 % Eosinophils (%) (Auto) 1.7 % Basophils (%) (Auto) 0.6 % Neutrophils # (Auto) 3.1 TH/MM3 Lymphocytes # (Auto) 0.6 TH/MM3 Monocytes # (Auto) 0.7 TH/MM3 Eosinophils # (Auto) 0.1 TH/MM3 Basophils # (Auto) 0.0 TH/MM3 CBC Comment DIFF FINAL Differential Comment Sodium Level 140 MEQ/L Potassium Level 3.8 MEQ/L Chloride Level 95 MEQ/L Carbon Dioxide Level 34.7 MEQ/L Anion Gap 10 MEQ/L Blood Urea Nitrogen 10 MG/DL Creatinine 0.54 MG/DL Estimat Glomerular Filtration 147 ML/MIN Rate Random Glucose 96 MG/DL Calcium Level 9.1 MG/DL Physical Examination HEENT: Pupils round and reactive to light; normocephalic; atraumatic; no jaundice. Throat is clear. NECK: Neck is supple, no JVD, no lymphadenopathy. CHEST: CTA, poor inspiratory effort CARDIAC: Regular ABDOMEN: +BS, soft, nondistended, nontender EXTREMITIES: No clubbing, cyanosis, or edema. SKIN: Normal; no rash; no jaundice. CORE CARRIER: No focal deficits; alert and oriented to self, place (hospital in [place]) , and time (2016) (Mary Felipe) Assessment and Plan Plan ASSESSMENT: - Severe anemia. Pt admitted for dizziness and SOB on 05/29/16 from a local assisted living facility, [facility]. Labs at admission revealed a significant anemia with Hgb 6.1/Hct 19.8. Pt was given 2 units of PRBCs and repeat labs today with noted Hgb 13.8/Hct 42.8 which is unlikely to be correct as pt only received 2 units of blood. No obvious bleeding reported. Pt was noted to be guaiac negative in the ED. He is notably iron deficient. Pt was seen by Hematology/oncology and there is concern for possible myelodysplastic syndrome vs. acute leukemia vs. bone marrow suppression from medications and pt is planned for BM biopsy but GI consult was requested to rule out any malignancy as a cause for his anemia. Pt denies any previous evaluation with EGD or colonoscopy but pt does not appear to be a reliable historian secondary to his dementia. - Parkinson's disease/dementia. Neurology consulted to review medications - HTN, COPD/Asthma. Management per attending. PLAN: - Attempted to call the pts contact listed in his chart, Ed Anderson ([phone]), but his phone is not receiving incoming calls. I attempted to call the pts [facility] to obtain more information but staff was unable to get in contact with the director to determine if they could be a point of contact or not. The pt will need evaluation with EGD/ colonoscopy to try to assess for possible GI malignancy as a possible source for his severe anemia. We will need to have two physicians on the case sign a medically necessary consent for these procedures as we are unable to reach any family or point of contact for this patient and he does not appear at this time to be able to fully understand and/or consent for these procedures. - Repeat CBC as labs today likely nor accurate given the significant increase in his H/H with only two units of PRBCs - Repeat labs in AM - Clear liquid diet - GoLytely prep - NPO after MN except meds - Pt is being given IV iron infusion - Supportive care - Further recommendations as the case develops - The pt was seen and examined by myself and Dr. Turner, this note was written on his behalf. (Mary Felipe) Physician Comments Patient seen and examined Agree with above Continue with current supportive care Monitor labs At this point there does not seem to be any evidence of any active bleeding and there is no hemodynamic compromise We'll await for family to give consent (Drew Turner MD) Mary Felipe May 30, 2016 14:03 Drew Turner MD May 30, 2016 16:42
[2016-05-30 15:40] VITALS: BP 125/69; PULSE 90; RESP 20; TEMP 97.5; O2SAT 96
[2016-05-30 15:49] LABS: HEMATOCRIT 39.5 % (39.0-51.0); REVIEW FLAG FINAL
[2016-05-30] MEDS ORDERED: PEG (High)/E-LYTE SOLN 4000 ML BTL PO ONE (16:00)
[2016-05-30] MEDS: ONDANSETRON HCL 4 MG/2 ML VIAL IVP PRN (17:40)
[2016-05-30 19:35] LABS: FERRITIN 53 NG/ML (26-388); TRANSFERRIN IRON PROFILE 264 MG/DL (200-360)
[2016-05-30 20:00] VITALS: BP 158/71; PULSE 92; RESP 22; TEMP 98.6; O2SAT 95
[2016-05-31] VITALS (7 sets, daily range): BP systolic 130–178; BP diastolic 60–84; PULSE 71–103; RESP 18–20; TEMP 97.1–98.3; O2SAT 96–100
[2016-05-31 07:20] LABS: AUTOMATED NEUTROPHIL # 1.9 TH/MM3 (1.8-7.7); BASOPHIL % 0.9 % (0.0-2.0); EOSINOPHIL # 0.2 TH/MM3 (0-0.4); EOSINOPHIL % 6.6 % (0.0-4.0); HEMATOCRIT 37.8 % (39.0-51.0); HEMO FLAGS DIFF FINAL; LYMPH % 17.3 % (9.0-44.0); LYMPHOCYTE # 0.6 TH/MM3 (1.0-4.8); MEAN CELL VOLUME 84.3 FL (80.0-100.0); MEAN CORPUSCULAR HGB CONC 33.2 % (32.0-36.0); MONO % 19.5 % (0.0-8.0); NEUT % 55.7 % (16.0-70.0); PLATELET COUNT 133 TH/MM3 (150-450); RED BLOOD COUNT 4.48 MIL/MM3 (4.50-5.90); RED CELL DISTRIBUTION WIDTH 15.2 % (11.6-17.2); WHITE BLOOD COUNT 3.5 TH/MM3 (4.0-11.0)
[2016-05-31 08:09] LABS: BICARBONATE 33.9 MEQ/L (21.0-32.0); MAGNESIUM 2.2 MG/DL (1.5-2.5)
[2016-05-31] MEDS: SODIUM CHLORIDE 0.9% FLUSH 5 ML FLUSH FLUSH SCH ×2 (08:44→20:37)
[2016-05-31] MEDS: DOCUSATE SODIUM 100 MG CAP PO SCH ×2 (08:44→20:34)
[2016-05-31] MEDS: VENLAFAXINE HCL XR 75 MG CAP PO SCH (08:44)
[2016-05-31] MEDS: DIVALPROEX SODIUM E.R. 250 MG TAB PO SCH (08:44)
[2016-05-31] MEDS: CALCIUM CARBONATE 500 MG CHEWABLE TAB CHEW SCH ×2 (08:44→20:34)
[2016-05-31] MEDS: amLODIPine BESYLATE 5 MG TAB PO SCH (08:44)
[2016-05-31] MEDS: BETAMETHASONE DIPROPIONATE 0.05% OINT 15 GM TUBE TOP SCH ×2 (08:45→20:37)
[2016-05-31] MEDS: SODIUM CHLOR 0.45% 1000 ML INJ 1,000 ML IV SCH (08:45)
[2016-05-31] MEDS: NYSTATIN 100,000 UNIT/GM CREAM 15 GM TOPICAL SCH ×2 (08:45→20:37)
--- NOTE | 2016-05-31 08:57 | PD.ONC.PN ---
Subjective Subjective Remarks Afebrile overnight. Patient resting. No overnight events per nurse. Patient without complaints. Objective Data Date Time Temp Pulse Resp B/P Pulse Ox O2 Delivery O2 Flow Rate FiO2 05/31/16 07:35 97.3 100 20 178/84 98 05/31/16 04:00 97.3 80 20 157/69 99 05/31/16 00:00 97.1 103 20 137/66 96 05/30/16 20:00 Nasal Cannula 3.00 05/30/16 20:00 98.6 92 22 158/71 95 05/30/16 15:40 97.5 90 20 125/69 96 05/30/16 11:30 97.3 85 20 156/67 96 05/31/16 05/31/16 05/31/16 07:00 15:00 23:00 Intake Total 0 ml Balance 0 ml Result Diagram: 05/31/16 0603 05/31/16 0603 Laboratory Results Laboratory Tests Test 05/30/16 05/31/16 15:08 06:03 Hemoglobin 13.0 GM/DL 12.5 GM/DL Hematocrit 39.5 % 37.8 % White Blood Count 3.5 TH/MM3 Red Blood Count 4.48 MIL/MM3 Mean Corpuscular Volume 84.3 FL Mean Corpuscular Hemoglobin 28.0 PG Mean Corpuscular Hemoglobin 33.2 % Concent Red Cell Distribution Width 15.2 % Platelet Count 133 TH/MM3 Mean Platelet Volume 11.1 FL Neutrophils (%) (Auto) 55.7 % Lymphocytes (%) (Auto) 17.3 % Monocytes (%) (Auto) 19.5 % Eosinophils (%) (Auto) 6.6 % Basophils (%) (Auto) 0.9 % Neutrophils # (Auto) 1.9 TH/MM3 Lymphocytes # (Auto) 0.6 TH/MM3 Monocytes # (Auto) 0.7 TH/MM3 Eosinophils # (Auto) 0.2 TH/MM3 Basophils # (Auto) 0.0 TH/MM3 CBC Comment DIFF FINAL Differential Comment Sodium Level 141 MEQ/L Potassium Level 3.0 MEQ/L Chloride Level 98 MEQ/L Carbon Dioxide Level 33.9 MEQ/L Anion Gap 9 MEQ/L Blood Urea Nitrogen 12 MG/DL Creatinine 0.49 MG/DL Estimat Glomerular Filtration 164 ML/MIN Rate Random Glucose 79 MG/DL Calcium Level 8.7 MG/DL Magnesium Level 2.2 MG/DL Administered Medications Medications (Trade) Dose Ordered Sig/Yelitza Route PRN Reason Start Time Stop Time Status Last Admin Dose Admin IV Flush (NS Flush) 2 ml BID FLUSH 05/29/16 21:00 05/30/16 21:09 Ondansetron HCl (Zofran Inj) 4 mg Q6H PRN IVP NAUSEA OR VOMITING 05/29/16 10:00 05/30/16 17:40 Albuterol Sulfate (Proair Hfa Inh) 2 puff Q6HR PRN INH SHORTNESS OF BREATH 05/29/16 10:00 05/29/16 10:59 Amlodipine Besylate (Norvasc) 5 mg DAILY PO 05/30/16 09:00 05/31/16 08:44 Docusate Sodium (Colace) 100 mg BID PO 05/29/16 21:00 05/31/16 08:44 Nystatin (Mycostatin Cream) 1 applic BID TOPICAL 05/29/16 21:00 05/31/16 08:45 Temazepam (Restoril) 7.5 mg HS PRN PO INSOMNIA 05/29/16 10:00 05/29/16 22:38 Betamethasone Dipropionate (Diprosone 0.05% Ointment) 1 applic BID TOP 05/29/16 21:00 05/31/16 08:45 Venlafaxine HCl (Effexor Xr) 75 mg DAILY PO 05/30/16 09:00 05/31/16 08:44 Calcium Carbonate 500 mg 500 mg Q12HR CHEW 05/29/16 21:00 05/31/16 08:44 Sodium Chloride 1,000 ml @ 84 mls/hr [id number] IV 05/29/16 10:15 05/31/16 08:45 Iron Sucrose/ Sodium Chloride (Venofer Inj/NS Inj) 105 ml @ 105 mls/hr DAILY@11 IV 05/30/16 11:00 06/01/16 11:59 05/30/16 10:33 Ropinirole HCl (Requip) 0.25 mg Q8HR PO 05/30/16 14:00 05/31/16 05:22 Divalproex Sodium (Depakote Er) 250 mg DAILY PO 05/31/16 09:00 05/31/16 08:44 Objective Remarks GENERAL: Elderly male, sitting up in bed. SKIN: Warm and dry. HEAD: Normocephalic. EYES: No injection or drainage. NECK: Supple, trachea midline. CARDIOVASCULAR: Regular rate and rhythm RESPIRATORY: Breath sounds equal bilaterally. No accessory muscle use. GASTROINTESTINAL: Abdomen soft, non-tender, nondistended. EXTREMITIES: No cyanosis NEUROLOGICAL: awake and alert. ++severe tremor. Assessment/Plan Problem List: (1) Pancytopenia Status: Acute Plan: 05/31/16: counts with slight dip, but remain stable. --differential diagnosis is myelodysplastic syndrome versus acute leukemia versus bone marrow suppression from the medications such as Divalproex and/or Carbidopa/Levadopa. --will need bone marrow aspirate and biopsy on Tuesday to evaluate for either myelodysplastic syndrome or acute leukemia. (2) Iron deficiency anemia Status: Acute Plan: 05/31: continue IV Venofer --stools check in ED were Hemoccult negative Assessment 80y/o with pancytopenia and iron deficiency anemia. h/o Dementia, COPD, depression, hypertension, Parkinson's disease. Attending Statement no new c/o H/H stable plat went down a little. GI input noted. No family available to give consent. The exam, history, and the medical decision-making described in the above note were completed with the assistance of the mid-level provider. I reviewed and agree with the findings presented. I attest that I had a [id number] encounter with the patient on the same day, and personally performed and documented my assessment and findings in the medical record. Problem Qualifiers (1) Iron deficiency anemia: Qualified Code: D50.9 - Iron deficiency anemia, unspecified iron deficiency anemia type Sarah Montgomery May 31, 2016 08:57 Ashwin Dorantes MD May 31, 2016 22:41
[2016-05-31] MEDS: IRON SUCROSE INJ 100 MG in SODIUM CHLORIDE 0.9% INJ 100 ML IV SCH (11:40)
--- NOTE | 2016-05-31 11:55 | HHI.PR ---
Subjective Remarks awake and alert no pain complains resting tremors patient did not get the complete prep Objective Vitals Vital Signs Date Time Temp Pulse Resp B/P Pulse Ox O2 Delivery O2 Flow Rate FiO2 05/31/16 11:12 98 Nasal Cannula 4.00 05/31/16 07:35 97.3 100 20 178/84 98 05/31/16 04:00 97.3 80 20 157/69 99 05/31/16 00:00 97.1 103 20 137/66 96 05/30/16 20:00 Nasal Cannula 3.00 05/30/16 20:00 98.6 92 22 158/71 95 05/30/16 15:40 97.5 90 20 125/69 96 I/O 05/30/16 05/30/16 05/30/16 05/31/16 05/31/16 05/31/16 07:00 15:00 23:00 07:00 15:00 23:00 Intake Total 240 ml 1830 ml 0 ml Output Total 400 ml 250 ml 650 ml Balance -160 ml -250 ml 1180 ml 0 ml Intake Oral 240 ml 240 ml 0 ml IV Total 1590 ml Output Urine Total 400 ml 250 ml 650 ml # Voids 2 3 1 # Bowel Movements 1 0 Result Diagram: 05/31/16 0603 05/31/16 0603 Imaging Last Impressions Chest X-Ray 05/29/16 0800 Signed Impressions: Service Date/Time: Sunday, May 29, 2016 08:03 - CONCLUSION: 1. 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 No new findings compared with January 2016. Noah Wheeler MD Objective Remarks awake and alert, +resting tremors anicteric lungs no rales regular rhythm abdomen soft, non tender extremities no edema A/P Assessment and Plan Pancytopenia Anemia unclear etiology symptomatic, with HGB 6.1 on admission Consult IR for BM BX to r/o MDS. FOBT in the ER is negative. Type and screen transfuse 2U PRBC. Repeat HGB ay 13. Monitor H/H and transfuse as need. Monitor CBC Consult hem/onc ,GI ff- plan for scope tomorrow Multisustem Atrophy with Parkinsonism Chronic, continue home meds, carbidopa/levadopa- tapered off - continue on Requip Neurology ff HTN: Resume amlodipine, BP elevated on admission. Monitor VS and adjust meds as indicated Right sided fibrothorax, stable. CXR reviewed 1. 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 No new findings compared with January 2016. DVT ppx CI as patient with pancytopenia Evonne Morin MD May 30, 2016 10:37 Maninder Paz MD May 31, 2016 11:55 Also starte tums. Addendum: Evonne Morin MD on 05/30/16 @ 10:40 Check mag as well and replete as need Maninder Paz MD May 31, 2016 11:55
[2016-05-31] MEDS: POTASSIUM CHLOR 20 MEQ PREMIX 100 ML IV SCH ×2 (14:27→16:27)
--- NOTE | 2016-05-31 14:40 | HHI.GIFU ---
Subjective Remarks Resting in bed. Pt had some nausea/vomiting yesterday evening after starting the bowel prep, but otherwise has not had any further n/v. Denies abdominal pain. No bleeding. (Paola Hart) Objective Vitals I&O Vital Signs Date Time Temp Pulse Resp B/P Pulse Ox O2 Delivery O2 Flow Rate FiO2 05/31/16 11:45 97.1 97 20 140/60 97 Automatic Cuff 05/31/16 11:12 98 Nasal Cannula 4.00 05/31/16 07:35 97.3 100 20 178/84 98 05/31/16 04:00 97.3 80 20 157/69 99 05/31/16 00:00 97.1 103 20 137/66 96 05/30/16 20:00 Nasal Cannula 3.00 05/30/16 20:00 98.6 92 22 158/71 95 05/30/16 15:40 97.5 90 20 125/69 96 I/O 05/30/16 05/30/16 05/30/16 05/31/16 05/31/16 05/31/16 07:00 15:00 23:00 07:00 15:00 23:00 Intake Total 240 ml 1830 ml 0 ml Output Total 400 ml 250 ml 650 ml Balance -160 ml -250 ml 1180 ml 0 ml Intake Oral 240 ml 240 ml 0 ml IV Total 1590 ml Output Urine Total 400 ml 250 ml 650 ml # Voids 2 3 1 # Bowel Movements 1 0 Laboratory Laboratory Tests Test 05/30/16 05/31/16 05/31/16 15:08 06:02 06:03 Hemoglobin 13.0 12.5 Hematocrit 39.5 37.8 Thyroid Stimulating Hormone 1.070 3rd Gen White Blood Count 3.5 Red Blood Count 4.48 Mean Corpuscular Volume 84.3 Mean Corpuscular Hemoglobin 28.0 Mean Corpuscular Hemoglobin 33.2 Concent Red Cell Distribution Width 15.2 Platelet Count 133 Mean Platelet Volume 11.1 Neutrophils (%) (Auto) 55.7 Lymphocytes (%) (Auto) 17.3 Monocytes (%) (Auto) 19.5 Eosinophils (%) (Auto) 6.6 Basophils (%) (Auto) 0.9 Neutrophils # (Auto) 1.9 Lymphocytes # (Auto) 0.6 Monocytes # (Auto) 0.7 Eosinophils # (Auto) 0.2 Basophils # (Auto) 0.0 CBC Comment DIFF FINAL Differential Comment Sodium Level 141 Potassium Level 3.0 Chloride Level 98 Carbon Dioxide Level 33.9 Anion Gap 9 Blood Urea Nitrogen 12 Creatinine 0.49 Estimat Glomerular Filtration 164 Rate Random Glucose 79 Calcium Level 8.7 Magnesium Level 2.2 Imaging Last Impressions Chest X-Ray 05/29/16 0800 Signed Impressions: Service Date/Time: Sunday, May 29, 2016 08:03 - CONCLUSION: 1. 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 No new findings compared with January 2016. Noah Wheeler MD Physical Exam HEENT: Normocephalic; atraumatic; no jaundice. CHEST: CTA CARDIAC: RRR ABDOMEN: Soft, nondistended, nontender; no hepatosplenomegaly; bowel sounds are present in all four quadrants. EXTREMITIES: No clubbing, cyanosis, or edema. SKIN: Normal; no rash; no jaundice. 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 Tremors. (Paola Hart) Assessment and Plan Plan ASSESSMENT: - Severe anemia. Pt admitted for dizziness and SOB on 05/29/16 from a local assisted living facility, [facility]. Labs at admission revealed a significant anemia with Hgb 6.1/Hct 19.8. Pt was noted to be guaiac negative in the ED. Pt was seen by Hematology/oncology and there was concern for possible myelodysplastic syndrome vs. acute leukemia vs. bone marrow suppression from medications and the plan was for BM biopsy with a GI consult was requested to rule out any malignancy as a cause for his anemia. However, after 2 units of PRBC the patient's H/H went from 6.1/19.8 to 13.8/42.8 with repeat 13.0/39.5. This is stable today at 12.5/37.5. Likely this was a lab error. - Parkinson's disease/dementia. Neurology consulted to review medications - HTN, COPD/Asthma. Management per attending. PLAN: - KETURAH - Monitor CBC - ? Lab error, initial HH - Will d/w Dr. Rodrigues to see if GI workup is indicated. - Supportive care - Further recommendations as the case develops - The pt was seen and examined by myself and Dr. Rodrigues, this note was written on her behalf. (Paola Hart) Physician Comments seen, examined agree with above no family available for consent ct abdomen/pelvis (Zee Rodrigues MD) Paola Hart May 31, 2016 14:40 Zee Rodrigues MD May 31, 2016 19:56
[2016-05-31] MEDS ORDERED: DIATRIZOATE MEGLUM/DIATRIZOATE SOD 9 ML CUP PO ONE (20:02)
[2016-05-31] MEDS: TEMAZEPAM 7.5 MG CAP PO PRN (20:35)
[2016-06-01] VITALS (7 sets, daily range): BP systolic 122–191; BP diastolic 60–85; PULSE 67–98; RESP 16–21; TEMP 96.6–99.9; O2SAT 95–100
[2016-06-01 07:10] LABS: AUTOMATED NEUTROPHIL # 2.6 TH/MM3 (1.8-7.7); BASOPHIL % 0.9 % (0.0-2.0); EOSINOPHIL # 0.3 TH/MM3 (0-0.4); HEMATOCRIT 39.7 % (39.0-51.0); HEMO FLAGS DIFF FINAL; LYMPHOCYTE # 0.6 TH/MM3 (1.0-4.8); MEAN CELL VOLUME 85.3 FL (80.0-100.0); MEAN CORPUSCULAR HEMOGLOBIN 27.7 PG (27.0-34.0); MEAN CORPUSCULAR HGB CONC 32.4 % (32.0-36.0); MONO % 16.8 % (0.0-8.0); NEUT % 62.3 % (16.0-70.0); PLATELET COUNT 134 TH/MM3 (150-450); RED BLOOD COUNT 4.66 MIL/MM3 (4.50-5.90); RED CELL DISTRIBUTION WIDTH 15.5 % (11.6-17.2); WHITE BLOOD COUNT 4.2 TH/MM3 (4.0-11.0)
[2016-06-01] MEDS: amLODIPine BESYLATE 5 MG TAB PO SCH (08:46)
[2016-06-01] MEDS: NYSTATIN 100,000 UNIT/GM CREAM 15 GM TOPICAL SCH ×2 (08:46→21:40)
[2016-06-01] MEDS: DIVALPROEX SODIUM E.R. 250 MG TAB PO SCH (08:46)
[2016-06-01] MEDS: DOCUSATE SODIUM 100 MG CAP PO SCH ×2 (08:46→21:38)
[2016-06-01] MEDS: SODIUM CHLORIDE 0.9% FLUSH 5 ML FLUSH FLUSH SCH ×2 (08:46→21:39)
[2016-06-01] MEDS: CALCIUM CARBONATE 500 MG CHEWABLE TAB CHEW SCH ×2 (08:46→21:38)
[2016-06-01] MEDS: VENLAFAXINE HCL XR 75 MG CAP PO SCH (08:46)
[2016-06-01] MEDS: BETAMETHASONE DIPROPIONATE 0.05% OINT 15 GM TUBE TOP SCH ×2 (08:46→21:40)
[2016-06-01] MEDS: ONDANSETRON HCL 4 MG/2 ML VIAL IVP PRN (08:46)
--- NOTE | 2016-06-01 10:22 | HHI.PR ---
Subjective Remarks no complains of abdominal pain no reported melena or hematochezia no nausea or vomiting Objective Vitals Vital Signs Date Time Temp Pulse Resp B/P Pulse Ox O2 Delivery O2 Flow Rate FiO2 06/01/16 08:00 98.0 89 19 134/75 97 06/01/16 06:19 98.6 81 18 178/81 100 06/01/16 06:19 122/60 06/01/16 00:00 96.9 67 16 153/67 100 05/31/16 20:00 98.3 98 18 145/69 97 05/31/16 11:45 97.1 97 20 140/60 97 Automatic Cuff 05/31/16 11:12 98 Nasal Cannula 4.00 05/31/16 11:10 97.6 71 20 130/80 100 I/O 05/31/16 05/31/16 05/31/16 06/01/16 06/01/16 06/01/16 07:00 15:00 23:00 07:00 15:00 23:00 Intake Total 0 ml 240 ml Balance 0 ml 240 ml Intake Oral 0 ml 240 ml # Voids 1 6 2 # Bowel Movements 0 0 0 Result Diagram: 06/01/16 0615 05/31/16 0603 Imaging Last Impressions Chest X-Ray 05/29/16 0800 Signed Impressions: Service Date/Time: Sunday, May 29, 2016 08:03 - CONCLUSION: 1. 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 No new findings compared with January 2016. Noah Wheeler MD Objective Remarks awake and alert, +resting tremors anicteric lungs no rales regular rhythm abdomen soft, non tender extremities no edema Left AC area- erythema and mild induration, nontender A/P Assessment and Plan Pancytopenia Anemia unclear etiology symptomatic, with HGB 6.1 on admission Consult IR for BM BX to r/o MDS. FOBT in the ER is negative. S/P 2U PRBC. Repeat HGB ay 13. Monitor H/H and transfuse as need. 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 Monitor VS and adjust meds as indicated Right sided fibrothorax, stable. CXR reviewed Stable No new findings compared with January 2016. HYpokamia- replaced IV Mg- good Recheck today DVT ppx CI as patient with pancytopenia Maninder Paz MD Jun 01, 2016 10:22
[2016-06-01] MEDS: IRON SUCROSE INJ 100 MG in SODIUM CHLORIDE 0.9% INJ 100 ML IV SCH (10:25)
[2016-06-01] MEDS ORDERED: DIATRIZOATE MEGLUM/DIATRIZOATE SOD 9 ML CUP PO ONE (10:30)
--- NOTE | 2016-06-01 11:35 | PD.ONC.PN ---
Subjective Subjective Remarks Afebrile overnight. Patient resting in bed. No complaints. No reported events. Objective Data Date Time Temp Pulse Resp B/P Pulse Ox O2 Delivery O2 Flow Rate FiO2 06/01/16 08:00 98.0 89 19 134/75 97 06/01/16 06:19 98.6 81 18 178/81 100 06/01/16 06:19 122/60 06/01/16 00:00 96.9 67 16 153/67 100 05/31/16 20:00 98.3 98 18 145/69 97 05/31/16 11:45 97.1 97 20 140/60 97 Automatic Cuff Result Diagram: 06/01/16 0615 05/31/16 0603 Laboratory Results Laboratory Tests Test 06/01/16 06:15 White Blood Count 4.2 TH/MM3 Red Blood Count 4.66 MIL/MM3 Hemoglobin 12.9 GM/DL Hematocrit 39.7 % Mean Corpuscular Volume 85.3 FL Mean Corpuscular Hemoglobin 27.7 PG Mean Corpuscular Hemoglobin 32.4 % Concent Red Cell Distribution Width 15.5 % Platelet Count 134 TH/MM3 Mean Platelet Volume 10.9 FL Neutrophils (%) (Auto) 62.3 % Lymphocytes (%) (Auto) 14.0 % Monocytes (%) (Auto) 16.8 % Eosinophils (%) (Auto) 6.0 % Basophils (%) (Auto) 0.9 % Neutrophils # (Auto) 2.6 TH/MM3 Lymphocytes # (Auto) 0.6 TH/MM3 Monocytes # (Auto) 0.7 TH/MM3 Eosinophils # (Auto) 0.3 TH/MM3 Basophils # (Auto) 0.0 TH/MM3 CBC Comment DIFF FINAL Differential Comment Administered Medications Medications (Trade) Dose Ordered Sig/Yelitza Route PRN Reason Start Time Stop Time Status Last Admin Dose Admin IV Flush (NS Flush) 2 ml BID FLUSH 05/29/16 21:00 06/01/16 08:46 Ondansetron HCl (Zofran Inj) 4 mg Q6H PRN IVP NAUSEA OR VOMITING 05/29/16 10:00 06/01/16 08:46 Albuterol Sulfate (Proair Hfa Inh) 2 puff Q6HR PRN INH SHORTNESS OF BREATH 05/29/16 10:00 05/29/16 10:59 Amlodipine Besylate (Norvasc) 5 mg DAILY PO 05/30/16 09:00 06/01/16 08:46 Docusate Sodium (Colace) 100 mg BID PO 05/29/16 21:00 06/01/16 08:46 Nystatin (Mycostatin Cream) 1 applic BID TOPICAL 05/29/16 21:00 06/01/16 08:46 Temazepam (Restoril) 7.5 mg HS PRN PO INSOMNIA 05/29/16 10:00 05/31/16 20:35 Betamethasone Dipropionate (Diprosone 0.05% Ointment) 1 applic BID TOP 05/29/16 21:00 06/01/16 08:46 Venlafaxine HCl (Effexor Xr) 75 mg DAILY PO 05/30/16 09:00 06/01/16 08:46 Calcium Carbonate 500 mg 500 mg Q12HR CHEW 05/29/16 21:00 06/01/16 08:46 Iron Sucrose/ Sodium Chloride (Venofer Inj/NS Inj) 105 ml @ 105 mls/hr DAILY@11 IV 05/30/16 11:00 06/01/16 11:59 06/01/16 10:25 Ropinirole HCl (Requip) 0.25 mg Q8HR PO 05/30/16 14:00 06/01/16 06:01 Divalproex Sodium (Depakote Er) 250 mg DAILY PO 05/31/16 09:00 06/01/16 08:46 Objective Remarks GENERAL: Elderly male, lying in bed with severe tremor. SKIN: Warm and dry. HEAD: Normocephalic. EYES: No injection or drainage. NECK: Supple, trachea midline. CARDIOVASCULAR: Regular rate and rhythm RESPIRATORY: Breath sounds equal bilaterally. No accessory muscle use. GASTROINTESTINAL: Abdomen soft, non-tender, nondistended. EXTREMITIES: No cyanosis NEUROLOGICAL: awake and alert. severe tremor again noted. Assessment/Plan Problem List: (1) Pancytopenia Status: Acute Plan: 06/01/16: counts stable. Hematology will sign off. Patient clear for discharge back to SNF. --differential diagnosis is myelodysplastic syndrome versus acute leukemia versus bone marrow suppression from the medications such as Divalproex and/or Carbidopa/Levadopa. --will need bone marrow aspirate and biopsy on Tuesday to evaluate for either myelodysplastic syndrome or acute leukemia. (2) Iron deficiency anemia Status: Acute Plan: --s/p IV Venofer --stools check in ED were Hemoccult negative Assessment 80y/o with pancytopenia and iron deficiency anemia. h/o Dementia, COPD, depression, hypertension, Parkinson's disease. Attending Statement no c/o plat mildly low due to medications. H/H is NL, WBC NL no need for BM bx . Ok for d/c sign off available prn The exam, history, and the medical decision-making described in the above note were completed with the assistance of the mid-level provider. I reviewed and agree with the findings presented. I attest that I had a [id number] encounter with the patient on the same day, and personally performed and documented my assessment and findings in the medical record. Problem Qualifiers (1) Iron deficiency anemia: Qualified Code: D50.9 - Iron deficiency anemia, unspecified iron deficiency anemia type Sarah Montgomery Jun 01, 2016 11:35 Ashwin Dorantes MD Jun 01, 2016 23:14
[2016-06-01 12:16] LABS: BICARBONATE 26.5 MEQ/L (21.0-32.0); POTASSIUM 3.9 MEQ/L (3.5-5.1)
[2016-06-01] MEDS ORDERED: IOHEXOL 350 MG/ML 10 ML VIAL (for RAD DIAG) IV ONE (17:59)
--- NOTE | 2016-06-01 18:28 | RADRPT ---
EXAM DATE/TIME: 06/01/2016 17:47 [facility] COMPARISON: CT ABDOMEN & PELVIS W/O CONTRAST, February 24, 2016, 11:47. INDICATIONS : Anemia IV CONTRAST: 95 cc Omnipaque 350 (iohexol) IV ORAL CONTRAST: Prescribed oral contrast ingested. RADIATION DOSE: 11.01 CTDIvol (mGy) MEDICAL HISTORY : Cardiovascular disease. Hypertension. Parkinsons.Dementia SURGICAL HISTORY : None. ENCOUNTER: Initial ACUITY: 1 day PAIN SCALE: 0/10 LOCATION: abdomen TECHNIQUE: Volumetric scanning of the abdomen and pelvis was performed. Using automated exposure control and ad justment of the mA and/or kV according to patient size, radiation dose was kept as low as reasonably achievable to obtain optimal diagnostic quality images. FINDINGS: CT Abdomen: The spleen, pancreas, adrenals are unremarkable. There is no evidence for any appreciable pathological adenopathy, free fluid, or bowel obstruction. Chronic vascular calcifications are pres ent involving the aorta, iliac arteries without any significant stenosis or aneurysmal dilatations fo r technique. Large hiatal hernia is seen. Approximate 2.7 cm cyst is present in the left hepatic lobe with tiny cysts in both kidneys.CT pelvis: There is no evidence for mass, abscess formation, or any significant adenopathy within the pelvis. The prostate gland is inhomogeneous and measures 3.7 x 5.6 cm in AP and transverse diameters and nonspecific. CONCLUSION: Large hiatal hernia, cysts in the liver and kidneys. Katalina Ibarra MD on June 01, 2016 at 18:22 Board Certified Radiologist. This report was verified electronically.
[2016-06-01] MEDS: TEMAZEPAM 7.5 MG CAP PO PRN (21:38)
[2016-06-02] VITALS: BP 171/77; PULSE 65; RESP 16; TEMP 96.9; O2SAT 100
[2016-06-02 00:32] VITALS: BP 140/68
[2016-06-02 04:00] VITALS: BP 159/78; PULSE 78; RESP 16; TEMP 97.6; O2SAT 98
[2016-06-02 08:00] VITALS: BP 131/84; PULSE 72; RESP 18; TEMP 98.7; O2SAT 100
[2016-06-02] MEDS: amLODIPine BESYLATE 5 MG TAB PO SCH (08:16)
[2016-06-02] MEDS: DOCUSATE SODIUM 100 MG CAP PO SCH (08:16)
[2016-06-02] MEDS: CALCIUM CARBONATE 500 MG CHEWABLE TAB CHEW SCH (08:16)
[2016-06-02] MEDS: VENLAFAXINE HCL XR 75 MG CAP PO SCH (08:16)
[2016-06-02] MEDS: SODIUM CHLORIDE 0.9% FLUSH 5 ML FLUSH FLUSH SCH (08:17)
[2016-06-02] MEDS: BETAMETHASONE DIPROPIONATE 0.05% OINT 15 GM TUBE TOP SCH (08:21)
--- NOTE | 2016-06-02 10:14 | HHI.GIFU ---
GI Follow-up Note Consult Follow-up Subjective: Patient laying in bed comfortably,denies nausea, vomiting , abdominal pain, melena, hematemesis.Still no family available for consents.CT noted Objective: PHYSICAL EXAMINATION: Vitals signs stable No fever Vital Signs Date Time Temp Pulse Resp B/P Pulse Ox O2 Delivery O2 Flow Rate FiO2 06/02/16 08:00 98.7 72 18 131/84 100 06/02/16 04:00 97.6 78 16 159/78 98 HEENT: Pupils round and reactive to light; normocephalic; atraumatic; no jaundice. Throat is clear. NECK: Neck is supple, no JVD, no lymphadenopathy. CHEST: Chest is clear to auscultation and percussion. CARDIAC: Regular rate and rhythm with no murmur gallop or rubs. ABDOMEN: Soft, nondistended, nontender; no hepatosplenomegaly; bowel sounds are present in all four quadrants. EXTREMITIES: No clubbing, cyanosis, or edema. SKIN: Normal; no rash; no jaundice. HEAD OF MUSIC: No focal deficits; alert and oriented times 2, slightly confused, resting tremors Available Data (labs, X- Rays, Procedues) : Laboratory Tests Test 06/01/16 06/01/16 06:15 11:20 White Blood Count 4.2 TH/MM3 Red Blood Count 4.66 MIL/MM3 Hemoglobin 12.9 GM/DL Hematocrit 39.7 % Mean Corpuscular Volume 85.3 FL Mean Corpuscular Hemoglobin 27.7 PG Mean Corpuscular Hemoglobin 32.4 % Concent Red Cell Distribution Width 15.5 % Platelet Count 134 TH/MM3 Mean Platelet Volume 10.9 FL Neutrophils (%) (Auto) 62.3 % Lymphocytes (%) (Auto) 14.0 % Monocytes (%) (Auto) 16.8 % Eosinophils (%) (Auto) 6.0 % Basophils (%) (Auto) 0.9 % Neutrophils # (Auto) 2.6 TH/MM3 Lymphocytes # (Auto) 0.6 TH/MM3 Monocytes # (Auto) 0.7 TH/MM3 Eosinophils # (Auto) 0.3 TH/MM3 Basophils # (Auto) 0.0 TH/MM3 CBC Comment DIFF FINAL Differential Comment Sodium Level 137 MEQ/L Potassium Level 3.9 MEQ/L Chloride Level 101 MEQ/L Carbon Dioxide Level 26.5 MEQ/L Anion Gap 10 MEQ/L Blood Urea Nitrogen 13 MG/DL Creatinine 0.48 MG/DL Estimat Glomerular Filtration 168 ML/MIN Rate Random Glucose 83 MG/DL Calcium Level 9.0 MG/DL ASSESSMENT/PLAN: iron deficiency anaemia-patietn scheduled for egd/colonoscopy no family or poa to sign consent consider psych evaluation to determine if he is able to make medical decisions possible bone marrow biopsy Recommendations resume diet ensure egd/colonoscopy once consent obtained or patient declared competent to make medical decisions call us if this issue resolved gi will sign off for now if dc fu gi 2 weeks It was a pleasure seeing Leonor Salvador. Thank you for this consult. Entered by: Zee Reyes MD Jun 02, 2016 10:14
[2016-06-02 12:00] VITALS: BP 122/77; PULSE 70; RESP 17; TEMP 98.6; O2SAT 100
[2016-06-02 12:46] VITALS: O2SAT 96
--- NOTE | 2016-06-02 12:50 | HHI.PR ---
Subjective Remarks no complains tolerating po well no abdominal pain Objective Vitals Vital Signs Date Time Temp Pulse Resp B/P Pulse Ox O2 Delivery O2 Flow Rate FiO2 06/02/16 08:00 98.7 72 18 131/84 100 06/02/16 04:00 97.6 78 16 159/78 98 06/02/16 00:32 140/68 06/02/16 00:00 96.9 65 16 171/77 100 06/01/16 20:00 96.6 98 18 191/81 96 06/01/16 16:00 99.9 87 19 140/67 95 06/01/16 13:28 96 Nasal Cannula 2.00 I/O 06/01/16 06/01/16 06/01/16 06/02/16 06/02/16 06/02/16 07:00 15:00 23:00 07:00 15:00 23:00 Intake Total 725 ml 120 ml Balance 725 ml 120 ml Intake Oral 725 ml 120 ml # Voids 2 1 2 3 # Bowel Movements 0 0 0 0 Result Diagram: 06/01/16 0615 06/01/16 1120 Imaging Last Impressions Abdomen/Pelvis CT 06/01/16 0000 Signed Impressions: Service Date/Time: Wednesday, June 01, 2016 17:47 - CONCLUSION: Large hiatal hernia, cysts in the liver and kidneys. Katalina Ibarra MD Chest X-Ray 05/29/16 0800 Signed Impressions: Service Date/Time: Sunday, May 29, 2016 08:03 - CONCLUSION: 1. 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 No new findings compared with January 2016. Noah Wheeler MD Objective Remarks awake and alert, +resting tremors anicteric lungs no rales regular rhythm abdomen soft, non tender extremities no edema Left AC area- erythema and mild induration- resolved A/P Assessment and Plan Pancytopenia Anemia with HGB 6.1 on admission - likely from medication related- Carbidopa/[id number] DC FOBT in the ER is negative. S/P 2U PRBC. Repeat HGB ay 13. Monitor H/H and transfuse as need. GI plan for scope- no one to give consent Per Hematology- no need for biopsy. Hematology ff- OP ff up Multisystem Atrophy with Parkinsonism Chronic, continue home meds, carbidopa/levadopa- DC - continue on Requip Neurology ff HTN:On amlodipine, BP elevated on admission. Monitor VS and adjust meds as indicated Right sided fibrothorax, stable. CXR reviewed Stable No new findings compared with January 2016. HYpokamia- improved DVT ppx CI as patient with pancytopenia DC to [facility] today Maninder Paz MD Jun 02, 2016 12:50
--- NOTE | 2016-06-02 12:59 | HHI.DS ---
Discharge Summary Admission Date May 29, 2016 at 10:00 Discharge Date: Jun 02, 2016 Admitting Diagnosis symptomatic anemia, Parkinson's disease, hypokalemia (1) Iron deficiency anemia ICD Code: D50.9 Diagnosis: Principal (2) Parkinson's disease ICD Code: G20 Diagnosis: Secondary Procedures none Brief History - From Admission The patient is a 80-year-old male with PMH of Parkinson disease, HTN, dementia who presented to the emergency Department from assisted living facility because he feels like he is going to pass out and he felt sob. The patient feels like he is going to "pass out ", and he has associated sob. Does complain of mild dizziness, and states his symptoms are present at rest. The patient is currently nonambulatory secondary to severe Parkinson's disease, therefore, is unable to tell me if his symptoms or orthostatic. He denies any headache, chest pain, nausea, vomiting, or abdominal pain. The patient does have a history of asthma and COPD and uses oxygen intermittently. The patient denies any fever. Symptoms are moderate, there are no known alleviating or exacerbating factors. He has tremors, says at baseline, doesn't know the name of his neurology doctor. His BP is noted elevated says he did not take his meds in the morning. CBC/BMP: 06/01/16 0615 06/01/16 1120 Significant Findings Laboratory Tests Test 05/31/16 06/01/16 06/01/16 06:03 06:15 11:20 White Blood Count 3.5 TH/MM3 (4.0-11.0) Red Blood Count 4.48 MIL/MM3 (4.50-5.90) Hemoglobin 12.5 GM/DL 12.9 GM/DL (13.0-17.0) (13.0-17.0) Hematocrit 37.8 % (39.0-51.0) Platelet Count 133 TH/MM3 134 TH/MM3 (150-450) (150-450) Mean Platelet Volume 11.1 FL (7.0-11.0) Monocytes (%) (Auto) 19.5 % 16.8 % (0.0-8.0) (0.0-8.0) Eosinophils (%) (Auto) 6.6 % (0.0-4.0) 6.0 % (0.0-4.0) Lymphocytes # (Auto) 0.6 TH/MM3 0.6 TH/MM3 (1.0-4.8) (1.0-4.8) Potassium Level 3.0 MEQ/L (3.5-5.1) Carbon Dioxide Level 33.9 MEQ/L (21.0-32.0) Creatinine 0.49 MG/DL 0.48 MG/DL (0.60-1.30) (0.60-1.30) Imaging Last Impressions Abdomen/Pelvis CT 06/01/16 0000 Signed Impressions: Service Date/Time: Wednesday, June 01, 2016 17:47 - CONCLUSION: Large hiatal hernia, cysts in the liver and kidneys. Katalina Ibarra MD Chest X-Ray 05/29/16 0800 Signed Impressions: Service Date/Time: Sunday, May 29, 2016 08:03 - CONCLUSION: 1. 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 No new findings compared with January 2016. Noah Wheeler MD PE at Discharge awake and alert, +resting tremors anicteric lungs no rales regular rhythm abdomen soft, non tender extremities no edema Left AC area- erythema and mild induration- resolved Pt update on day of discharge awake and alert, no distress tolerating po well Hospital Course Pancytopenia Anemia with HGB 6.1 on admission - likely from medication related- Carbidopa/Ojnqs2yj/Depakote- all DC FOBT in the ER is negative. S/P 2U PRBC. Repeat HGB ay 13. Monitor H/H and transfuse as need. GI plan for scope- no one to give consent Per Hematology- no need for biopsy. Hematology ff- OP ff up Multisystem Atrophy with Parkinsonism Chronic, continue home meds, carbidopa/levadopa- DC - continue on Requip Neurology ff HTN:On amlodipine, Right sided fibrothorax, stable. CXR reviewed Stable No new findings compared with January 2016. HYpokamia- improved DC to [facility] today Pt Condition on Discharge: Stable Discharge Disposition: [facility] Discharge Time: <= 30 minutes Discharge Instructions DIET: Follow Instructions for: As Tolerated, No Restrictions Speech Therapy-Diet Recommends: Regular Activities you can perform: Weight Bearing as Tabatha Follow up Referrals: Neurology - 06/10/16 with Michael Trotter MD Oncology - 10 Days with [facility] PCP Follow-up - 06/04/16 with [facility] New Orders: CBC WITH DIFF Continued Medications: Albuterol 6.7 GM Inh (Proventil Hfa 6.7 GM Inh) 90 Mcg/Act Aer 2 PUFF INH Q4-6H PRN SHORTNESS OF BREATH #1 Ref 0 INHALER Amlodipine (Amlodipine) 5 Mg Tab 5 MG PO DAILY Blood Pressure Management #30 Ref 0 TAB Temazepam (Temazepam) 7.5 Mg Cap 7.5 MG PO HS PRN INSOMNIA #30 Ref 0 CAP Venlafaxine (Effexor) 75 Mg Tab 75 MG PO DAILY Ref 0 TAB Discontinued Medications: Acetaminophen (Acetaminophen) 325 Mg Tab 325 MG PO Q4-6H PRN FEVER Ref 0 TAB Aspirin (Aspirin) 81 Mg Tabdr 81 MG PO DAILY TAB Carbidopa-Levodopa (Carbidopa-Levodopa) 25-100 Mg Tab 1 TAB PO Q8HR Parkinson Disease Mgmt #90 Ref 0 TAB Divalproex ER (Divalproex ER) 250 Mg Tenzin 250 MG PO BID Control Seizures #30 Ref 0 TAB Docusate Sodium (Docusate Sodium) 100 Mg Cap 100 MG PO BID Prevent Constipation #60 Ref 0 CAP Nystatin Topical (Nystatin Topical) 100,000 unit/gm Cream 1 APPLIC TOPICAL BID Infection #15 Ref 0 GM Triamcinolone Topical (Triamcinolone Topical) 0.5 % Oint 1 APPLIC TOPICAL BID Inflammation Ref 0 GM Maninder Paz MD Jun 02, 2016 12:58
--- NOTE | 2016-06-02 13:15 | HHI.FF ---
Face to Face Verification Diagnosis: (1) Parkinson's disease (2) Symptomatic anemia Physical Therapy Order: Evaluate and Treat, Improve ambulation Occupational Therapy Order: Evaluate and Treat, Improve ADL, Gross motor coordination, Fine motor coordination Speech Therapy Order: To Improve: Speech and communication skills Home Health Nursing Order: Medical education Signs/symptoms of disease process Medication education-adverse effect Nursing assessment with vital signs Enrollment Representative Order: To Evaluate: Support services I have seen patient Leonor Salvador on 06/02/16. My clinical findings support the need for the requested home health care services because: Ltd mobility - disease progression Deconditioned w/ increased weakness Need for psychosocial assistance I certify that my clinical findings support that this patient is homebound because: Unsafe to leave home unassisted Need for psychosocial assistance Maninder Paz MD Jun 02, 2016 13:15
== END 2016-06-02 15:02 | DRG 809 ==
LOC: NEPE 07:49 → NEDA 10:00 → N05B 11:46
PROVIDERS: ADMIT Internal Medicine; ATTEND Internal Medicine
PROC: 30233N1 Transfusion of Nonautologous Red Blood Cells into Peripheral Vein, Percutaneous Approach (ICD-10-PCS; principal; 2016-05-29)
DX: D61.818 Other pancytopenia (principal); G25.9 Extrapyramidal and movement disorder, unspecified; G20 Parkinson's disease; F03.90 Unspecified dementia, unspecified severity, without behavioral disturbance, psychotic disturbance, mood disturbance, and anxiety; J44.9 Chronic obstructive pulmonary disease, unspecified; D50.9 Iron deficiency anemia, unspecified; I10 Essential (primary) hypertension; E87.6 Hypokalemia; J45.909 Unspecified asthma, uncomplicated; R55 Syncope and collapse; H91.90 Unspecified hearing loss, unspecified ear; F32.9 Major depressive disorder, single episode, unspecified; J94.1 Fibrothorax; E83.51 Hypocalcemia; Z87.891 Personal history of nicotine dependence; T42.8X5A Adverse effect of antiparkinsonism drugs and other central muscle-tone depressants, initial encounter
CPT/HCPCS: 36430; 71010; 74177; 80048; 80053; 80164; 81001; 82550; 82607; 82728; 82746; 82948; 83540; 83550; 83735; 84443; 84484; 85014; 85018; 85025; 86850; 86900; 86901; 86920; 93005; 96361; 96374; J0610; J1756; J2405; J3480; J7030; J7050; P9016; Q9963; Q9967

== ENCOUNTER 2016-06-23 18:25 | Emergency (ER) | payer MEDICARE, MEDICAID ==
[~2016-06-23] VITALS: Ht 165.1 cm; Wt 65.0 kg
[~2016-06-23 18:25] MED LIST changes: -ACET325T PO; -ASPI1TAB69 PO; -CARB25TA9 PO; -DIVA250T3 PO; -DOCU100C PO; -NYST15T TOPICAL; +TEMA7.5C PO; -TRIA0.5O TOPICAL
[2016-06-23 18:36] VITALS: BP 166/72; PULSE 78; RESP 16; TEMP 98.7; O2SAT 99
[2016-06-23] MEDS ORDERED: ALBUAER3 INH (18:56)
[2016-06-23] MEDS ORDERED: SODIUM CHLORIDE 0.9% FLUSH 10 ML FLUSH IVF PRN (19:00)
[2016-06-23 19:19] LABS: AUTOMATED NEUTROPHIL # 2.1 TH/MM3 (1.8-7.7); BASOPHIL % 0.7 % (0.0-2.0); EOSINOPHIL # 0.1 TH/MM3 (0-0.4); EOSINOPHIL % 2.9 % (0.0-4.0); HEMO FLAGS DIFF FINAL; LYMPH % 27.6 % (9.0-44.0); MEAN CELL VOLUME 84.3 FL (80.0-100.0); MEAN CORPUSCULAR HEMOGLOBIN 27.2 PG (27.0-34.0); MEAN CORPUSCULAR HGB CONC 32.3 % (32.0-36.0); MONO % 12.1 % (0.0-8.0); NEUT % 56.7 % (16.0-70.0); PLATELET COUNT 173 TH/MM3 (150-450); RED BLOOD COUNT 4.74 MIL/MM3 (4.50-5.90); RED CELL DISTRIBUTION WIDTH 16.5 % (11.6-17.2); WHITE BLOOD COUNT 3.8 TH/MM3 (4.0-11.0)
[2016-06-23 19:28] LABS: APTT (PATIENT) 23.6 SEC (24.3-30.1); INTERNATIONAL NORMALIZED RATIO 0.9 RATIO; PROTHROMBIN TIME - PATIENT 10.4 SEC (9.8-11.6)
--- NOTE | 2016-06-23 19:32 | PD ---
HPI Chief Complaint: Respiratory Symptoms Time Seen by Provider: 18:50 Travel History International Travel<30 days: No Contact w/Intl Traveler<30days: No Traveled to known affect area: No History of Present Illness HPI Patient was sent from my [facility] for evaluation shortness of breath that began approximately an hour prior to arrival. Patient denies anything making it better or worse. Denies any chest pain, nausea, vomiting, diaphoresis, or anything making it better or worse. Patient states it felt different from his COPD. Denies any difficulty breathing currently. Patient states he does not want to be her he wants to go home. PFSH Past Medical History Anemia: Yes Asthma: Yes Cardiovascular Problems: Yes COPD: Yes Dementia: Yes Diminished Hearing: Yes Genitourinary: Yes Hypertension: Yes Musculoskeletal: Yes (wheelchair ) Neurologic: Yes Parkinson's Disease: Yes Respiratory: Yes Integumentary: Yes Immunizations Current: Yes Past Surgical History Surgical History: No Previous Surgery Social History Alcohol Use: No Tobacco Use: No Substance Use: No Allergies-Medications (Allergen,Severity, Reaction): Coded Allergies: Penicillin (Verified Allergy, Severe, Rash, 06/23/16) Reported Meds & Prescriptions Reported Meds & Active Scripts Active Reported Proair Hfa 8.5 GM Inh (Albuterol Sulfate) 90 Mcg/Act Aer 2 Puff INH Q4-6H PRN 108 mcg/actuation Temazepam 7.5 Mg Cap 7.5 Mg PO HS PRN Effexor (Venlafaxine HCl) 75 Mg Tab 75 Mg PO DAILY Amlodipine (Amlodipine Besylate) 5 Mg Tab 5 Mg PO DAILY Proventil Hfa 6.7 GM Inh (Albuterol Sulfate) 90 Mcg/Act Aer 2 Puff INH Q4-6H PRN Review of Systems Except as stated in HPI: all other systems reviewed are Neg Physical Exam Narrative GENERAL: Well-developed, well nourished, in no acute distress, and non-ill appearing. Tremulous secondary to history of Parkinson's. SKIN: Focused skin assessment warm and dry. HEAD: Atraumatic. Normocephalic. EYES: Pupils equal and round. EOMI. No scleral icterus. No injection or drainage. ENT: No nasal bleeding or discharge. Mucous membranes pink and moist. NECK: Trachea midline. No JVD. Supple. No nuclear rigidity. CARDIOVASCULAR: Regular rate and rhythm. No murmur appreciated. RESPIRATORY: No accessory muscle use. No respiratory distress. Clear to auscultation. Breath sounds equal bilaterally. GASTROINTESTINAL: Abdomen soft, non-tender, nondistended. Hepatic and splenic margins not palpable. No pulsatile mass. MUSCULOSKELETAL: No obvious deformities. No clubbing. No cyanosis. No edema. Full range of motion. NEUROLOGICAL: Awake and alert. No obvious cranial nerve deficits. Motor grossly within normal limits. Normal speech. PSYCHIATRIC: Appropriate mood and affect; insight and judgment normal. Data Data Last Documented VS Vital Signs Date Time Temp Pulse Resp B/P Pulse Ox O2 Delivery O2 Flow Rate FiO2 06/23/16 18:38 100 Nasal Cannula 3 06/23/16 18:36 98.7 78 16 166/72 Orders Complete Blood Count With Diff (06/23/16 18:53) Basic Metabolic Panel (Bmp) (06/23/16 18:53) Act Partial Throm Time (Ptt) (06/23/16 18:53) Prothrombin Time / Inr (Pt) (06/23/16 18:53) Ckmb (Isoenzyme) Profile (06/23/16 18:53) Troponin I (06/23/16 18:53) Iv Access Insert/Monitor (06/23/16 18:53) Electrocardiogram (06/23/16 18:53) Ecg Monitoring (06/23/16 18:53) Oximetry (06/23/16 18:53) Oxygen Administration (06/23/16 18:53) Sodium Chloride 0.9% Flush (Ns Flush) (06/23/16 19:00) Potassium Chloride (Kcl) (06/23/16 20:15) Labs Laboratory Tests Test 06/23/16 19:03 White Blood Count 3.8 TH/MM3 Red Blood Count 4.74 MIL/MM3 Hemoglobin 12.9 GM/DL Hematocrit 40.0 % Mean Corpuscular Volume 84.3 FL Mean Corpuscular Hemoglobin 27.2 PG Mean Corpuscular Hemoglobin 32.3 % Concent Red Cell Distribution Width 16.5 % Platelet Count 173 TH/MM3 Mean Platelet Volume 11.4 FL Neutrophils (%) (Auto) 56.7 % Lymphocytes (%) (Auto) 27.6 % Monocytes (%) (Auto) 12.1 % Eosinophils (%) (Auto) 2.9 % Basophils (%) (Auto) 0.7 % Neutrophils # (Auto) 2.1 TH/MM3 Lymphocytes # (Auto) 1.0 TH/MM3 Monocytes # (Auto) 0.5 TH/MM3 Eosinophils # (Auto) 0.1 TH/MM3 Basophils # (Auto) 0.0 TH/MM3 CBC Comment DIFF FINAL Differential Comment Prothrombin Time 10.4 SEC Prothromb Time International 0.9 RATIO Ratio Activated Partial 23.6 SEC Thromboplast Time Sodium Level 140 MEQ/L Potassium Level 3.2 MEQ/L Chloride Level 99 MEQ/L Carbon Dioxide Level 33.1 MEQ/L Anion Gap 8 MEQ/L Blood Urea Nitrogen 15 MG/DL Creatinine 0.79 MG/DL Estimat Glomerular Filtration 95 ML/MIN Rate Random Glucose 97 MG/DL Calcium Level 8.9 MG/DL Total Creatine Kinase 43 U/L Troponin I LESS THAN 0.02 NG/ML MDM Medical Decision Making Medical Screen Exam Complete: Yes Emergency Medical Condition: Yes Interpretation(s) EKG reviewed by Dr. Gayle, shows ventricular rate of 90. No STEMI. Differential Diagnosis Pneumonia, COPD exacerbation, dyspnea, other Narrative Course Patient in no obvious distress upon re-evaluation. All pertinent laboratory result(s) discussed with patient. Patient refused x-rays any additional workup. Patient has no complaints currently other than wanting to go home. Patient's lungs are clear to auscultation. Patient is using accessory muscles or any type of respiratory distress. Patient speaking in full sentences without difficulty. Discussed patient with Dr. Gayle, who is in agreement with plan of care and disposition feels patient is stable to be discharged [facility]. Any questions/concerns in reference to patient diagnosis/condition discussed and clarified prior to patient's discharge. Reinforced sheer importance of close follow up with patient's primary physician or primary care clinic. Instructed patient to return to ED immediately, if symptoms return/worsen. Pt showed understanding of above instructions. Further instructions and recommendations were detailed in discharge paperwork. Pt ambulated without difficulty out of ED at discharge. Diagnosis Primary Impression: Dyspnea, unspecified Additional Impression: Hypokalemia Patient Instructions: Dyspnea (ED), General Instructions, Hypokalemia (ED) Additional Instructions: Follow-up with your primary care physician in one to 2 days for reevaluation. Return to the emergency department if symptoms get worse. Disposition: 01 DISCHARGE HOME Condition: Stable Adan Lopez Jun 23, 2016 19:32
[2016-06-23 19:43] LABS: ANION GAP 8 MEQ/L (5-15); BICARBONATE 33.1 MEQ/L (21.0-32.0); BLOOD UREA NITROGEN 15 MG/DL (7-18); CHLORIDE 99 MEQ/L (98-107); GLOMERULAR FILTRATION RATE 95 ML/MIN (>89); POTASSIUM 3.2 MEQ/L (3.5-5.1); SODIUM (NA) 140 MEQ/L (136-145)
[2016-06-23 19:52] LABS: CREATINE KINASE 43 U/L (39-308)
[2016-06-23] MEDS ORDERED: POTASSIUM CHLORIDE 10 MEQ CONTROLLED RELEASE TAB PO ONE (20:15)
--- NOTE | 2016-06-25 07:00 | EKG ---
Date Performed: 06/23/2016 Time Performed: 19:05:59 PTAGE: 80 years EKG: Sinus rhythm WITH FREQUENT PVCs vs WANDERING ATRIAL PACEMAKER WITH PVCs BORDERLINE RIGHT AXIS DEVIATION INCOMPLET E RIGHT BUNDLE BRANCH BLOCK ABNORMAL RHYTHM ECG Compared to prior tracing no significant change PREVIOUS TRACING : 05/29/2016 08.00 DOCTOR: Donis Braxton Interpretating Date/Time 06/25/2016 06:59:56
== END 2016-06-23 20:25 | disposition home or self-care (01) ==
LOC: NEPC 18:25
DX: R06.02 Shortness of breath (principal); E87.6 Hypokalemia; J45.909 Unspecified asthma, uncomplicated; J44.9 Chronic obstructive pulmonary disease, unspecified; I10 Essential (primary) hypertension
CPT/HCPCS: 80048; 82550; 84484; 85025; 85610; 85730; 93005

== ENCOUNTER 2016-10-06 14:48 | Emergency (ER) | payer MEDICARE, MEDICAID ==
[~2016-10-06] VITALS: Ht 185.4 cm; Wt 60.0 kg
[~2016-10-06 14:48] MED LIST changes: +ALBUAER3 INH
[2016-10-06] MEDS ORDERED: LIDOCAINE HCL 1% 50 ML VIAL INFIL ONE (15:00)
[2016-10-06] MEDS ORDERED: TETANUS/DIPHTHERIA TOXOID ADULT 0.5 ML VIAL IM ONE (15:00)
[2016-10-06 15:08] VITALS: BP 131/60; PULSE 83; RESP 16; TEMP 98.5
--- NOTE | 2016-10-06 15:19 | PD ---
HPI Chief Complaint: Fall Time Seen by Provider: 15:12 Travel History International Travel<30 days: No Contact w/Intl Traveler<30days: No History of Present Illness HPI 81yo M with PMH of Parkinson's disease was brought in after a fall from [facility]. Pt's extremities are contracted and he is wheelchair bound but apparently can roll from the bed to the chair himself. Pt was rolling from the bed to the chair but fell and has a right parietal scalp laceration. Denies any LOC. Denies any headache, chest pain, sob, n/v, abdominal pain, focal weakness or numbness. Pt is at baseline mental status and is AAOx3. PFSH Past Medical History Anemia: Yes Asthma: Yes Cardiovascular Problems: Yes COPD: Yes Dementia: Yes Diminished Hearing: Yes Genitourinary: Yes Hypertension: Yes Musculoskeletal: Yes (wheelchair ) Neurologic: Yes Parkinson's Disease: Yes Respiratory: Yes Integumentary: Yes Immunizations Current: Yes Social History Alcohol Use: No Tobacco Use: No Substance Use: No Allergies-Medications (Allergen,Severity, Reaction): Coded Allergies: Penicillin (Verified Allergy, Severe, Rash, 10/06/16) Reported Meds & Prescriptions Reported Meds & Active Scripts Active Reported Gabapentin 100 Mg Cap 100 Mg PO HS Requip (Ropinirole HCl) 0.5 Mg Tab 0.5 Mg PO TID 14 Days Loperamide (Loperamide HCl) 2 Mg Cap 2 Mg PO 6 X A DAY PRN One capsule after each loose stool. Not to exceed 6 capsules per day. Nystatin Topical (Nystatin) 1 Powd 1 Appl TOPICAL Q8HR Apply to unguinal areas every shift Valium (Diazepam) 2 Mg Tab 2 Mg PO BID Effexor (Venlafaxine HCl) 75 Mg Tab 75 Mg PO BID Take in the morning and at 1pm Potassium Chloride ER (Potassium Chloride) 20 Meq Tab 20 Meq PO DAILY Melatonin 5 Mg Tab 5 Mg PO HS Ammonium Lactate (Lactic Acid (Ammonium Lactate)) 12% Lotn 1 Applic TOPICAL BID Temazepam 15 Mg Cap 15 Mg PO HS PRN Effexor (Venlafaxine HCl) 37.5 Mg Tab 37.5 Mg PO DAILY Ventolin Hfa 18 GM Inh (Albuterol Sulfate) 90 Mcg/Act Aer 2 Puff INH Q4-6H PRN Amlodipine (Amlodipine Besylate) 5 Mg Tab 5 Mg PO DAILY Review of Systems Except as stated in HPI: all other systems reviewed are Neg Physical Exam Narrative GENERAL: 81yo M not in distress. SKIN: Focused skin assessment warm/dry. HEAD: +1.5cm right parietal scalp laceration. EYES: Pupils equal and round at 3mm bilaterally. EOMI. No scleral icterus. No injection or drainage. ENT: No nasal bleeding or discharge. Mucous membranes pink and moist. NECK: Trachea midline. No JVD. No midline cervical spine ttp. CARDIOVASCULAR: Regular rate and rhythm. No murmur appreciated. RESPIRATORY: No accessory muscle use. Clear to auscultation. Breath sounds equal bilaterally. GASTROINTESTINAL: Abdomen soft, non-tender, nondistended. No rebound tenderness or guarding. MUSCULOSKELETAL: No obvious deformities. No clubbing. No cyanosis. No edema. NEUROLOGICAL: Awake and alert. No obvious cranial nerve deficits. Contracted extremities, tremulous at rest. Moving all extremities. Sensation intact. Data Data Last Documented VS Vital Signs Date Time Temp Pulse Resp B/P Pulse Ox O2 Delivery O2 Flow Rate FiO2 10/06/16 15:08 98.5 83 16 131/[address] Brain W/O Iv Contrast(Rout) (10/06/16 ) Tetanus/Diphtheria Tox Adult (Tetanus/Di (10/06/16 15:00) Lidocaine 1% Inj (50 Ml) (Xylocaine 1% I (10/06/16 15:00) MDM Medical Decision Making Medical Screen Exam Complete: Yes Emergency Medical Condition: Yes Differential Diagnosis Scalp laceration vs. ICH vs. fracture Narrative Course 81yo M with scalp laceration s/p mechanical fall today. Pt is at baseline mental status and denies any complaints. Pending CT brain and then laceration will be repaired by my PA. Sign out to next team to follow up on CT brain. Diagnosis Primary Impression: Head injury Qualified Code: S09.90XA - Head injury, initial encounter Iqra Reynolds DO Oct 06, 2016 15:19
[2016-10-06] MEDS ORDERED: TEMA15CA PO (16:07)
[2016-10-06] MEDS ORDERED: NYSTPOW TOPICAL (16:07)
[2016-10-06] MEDS ORDERED: AMMO12LO TOPICAL (16:07)
[2016-10-06] MEDS ORDERED: VENL37.5 PO (16:07)
[2016-10-06] MEDS ORDERED: MELA5TAB15 PO (16:07)
[2016-10-06] MEDS ORDERED: DIAZ2 PO (16:07)
[2016-10-06] MEDS ORDERED: VENTAER INH (16:07)
[2016-10-06] MEDS ORDERED: POTA-163 PO (16:07)
[2016-10-06] MEDS ORDERED: GABA300C5 PO (16:07)
[2016-10-06] MEDS ORDERED: ROPI.5 PO (16:07)
[2016-10-06] MEDS ORDERED: VENL75TA PO (16:07)
[2016-10-06] MEDS ORDERED: LOPE2CAP PO (16:07)
[2016-10-06] MEDS ORDERED: GABA100C4 PO (16:09)
--- NOTE | 2016-10-06 18:18 | RADRPT ---
EXAM DATE/TIME: 10/06/2016 17:35 [facility] COMPARISON: No previous studies available for comparison. INDICATIONS : Fell off a bed. RADIATION DOSE: 36.85 CTDIvol (mGy) MEDICAL HISTORY : Dementia. Parkinsons. Hypertension. SURGICAL HISTORY : None. ENCOUNTER: Initial ACUITY: 1 day PAIN SCALE: 3/10 LOCATION: Right cranial TECHNIQUE: Multiple contiguous axial images were obtained of the head. Using automated exposure control and adj ustment of the mA and/or kV according to patient size, radiation dose was kept as low as reasonably a chievable to obtain optimal diagnostic quality images. DICOM format image data is available electro nically for review and comparison. FINDINGS: CEREBRUM: Small hygroma on the right measuring 11 mm. There does appear to be some minimal right to left midlin e shift. The ventricles are normal for age. No evidence of midline shift, mass lesion, or acute infa rction. POSTERIOR FOSSA: The cerebellum and brainstem are intact. The 4th ventricle is midline. The cerebellopontine angle i s unremarkable. EXTRACRANIAL: The visualized portion of the orbits is intact. SKULL: The calvaria is intact. No evidence of skull fracture. CONCLUSION: 1. Small hygroma on the right measuring 11 mm. Minimal right to left midline shift. 2. Followup studies are recommended. Ramon Canales MD on October 06, 2016 at 18:15 Board Certified Radiologist. This report was verified electronically.
--- NOTE | 2016-10-06 18:50 | PD ---
Data Data Last Documented VS Vital Signs Date Time Temp Pulse Resp B/P Pulse Ox O2 Delivery O2 Flow Rate FiO2 10/06/16 15:08 98.5 83 16 131/[address] Brain W/O Iv Contrast(Rout) (10/06/16 ) Tetanus/Diphtheria Tox Adult (Tetanus/Di (10/06/16 15:00) Lidocaine 1% Inj (50 Ml) (Xylocaine 1% I (10/06/16 15:00) MDM Medical Record Reviewed: Yes Supervised Visit with ROBERT: No Narrative Course This case is checked out to me by Dr. Reynolds at 5 PM. This elderly demented Parkinson [facility] patient suffered a laceration to his right taoism when he rolled out of bed. The patient at this time is asymptomatic. He says he is not having headache and feels okay. However his brain CT shows a hygroma on the right side with a small amount of midline shift. I did discuss it with the radiologist who couldn't be certain that is not traumatic. I discussed it with Dr. Madrid by way of the circulating nurse as he is currently operating. However , the neurosurgeon was able to review the CAT scan of the brain and does not feel that he is needs further evaluation and is safe to send him back to the [facility]. As noted, the patient feels fine and does not take any blood thinners. Diagnosis Primary Impression: Head injury Qualified Code: S09.90XA - Head injury, initial encounter Additional Impression: Hygroma Disposition: 03 DISCHARGE TO SNF Condition: Stable Sherif Cerna MD Oct 06, 2016 18:50
[2016-10-06 23:26] VITALS: BP 148/72
== END 2016-10-06 23:27 ==
LOC: NEPD 14:48
DX: S01.01XA Laceration without foreign body of scalp, initial encounter (principal); S09.90XA Unspecified injury of head, initial encounter; D18.1 Lymphangioma, any site; G20 Parkinson's disease; F02.80 Dementia in other diseases classified elsewhere, unspecified severity, without behavioral disturbance, psychotic disturbance, mood disturbance, and anxiety; I10 Essential (primary) hypertension; W06.XXXA Fall from bed, initial encounter; Z79.899 Other long term (current) drug therapy; Z23 Encounter for immunization
CPT/HCPCS: 12001; 70450; 90471; 90714